=== PATIENT | female | born 1940 | race Caucasian/White ===

== ENCOUNTER 2022-10-18 06:05 | Outpatient (CLI) | payer MEDICARE, MEDICAID, SELFPAY ==
--- NOTE | 2022-10-18 06:18 | CT_ITS ---
WS: [id number] CT NECK TECHNIQUE: Contrast-enhanced CT of the neck with coronal and sagittal reformatted images. 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 DLP: 118.[address] scans at [facility] use at least one of these dose optimization techniques: automated e xposure control; mA and/or kV adjustment per patient size (includes targeted exams where dose is matc hed to clinical indication); or iterative reconstruction. FINDINGS: Palpable marker overlying the LEFT side of the face at the level of the mandible. Associated underlyi ng skin thickening compatible with area of known squamous cell carcinoma. This extends approximately 10.5 mm deep to the skin surface and measures approximately 2.2 x 1.1 Cm AP by transverse. Induration in the underlying soft tissues. Slight wispy induration abuts the underlying masseter muscle. Persis tent fat plane in this area. Concern for early involvement of the underlying masseter. In addition, this involves the underlying platysma. Normal LEFT parotid gland. 5 mm subcutaneous nodu le abutting the skin at the same level of the skin carcinoma anteriorly measuring 5 mm. Recommend cli nical correlation. This could represent a small lymph node. A few normal intraparotid lymph nodes. Normal RIGHT parotid gland. Normal submandibular glands. Tongu e base appears normal. Normal parapharyngeal fat. Normal posterior nasopharynx. Normal parapharyngeal fat. No evidence of supraglottic or glottic mass. Normal subglottic airway. Slightly spiculated nodule in the RIGHT upper lobe measuring 6 mm. Additional nodule in the RIGHT upp er lobe of the lung apex measuring 7 mm. Fibrosis lung apices. Mastoid air cells and paranasal sinuse s are well aerated. Retention cyst or polyp in the LEFT maxillary sinus measuring 10 mm with associat ed calcification. Mild mucosal thickening with trace fluid LEFT maxillary sinus. Trace mucosal thicke charly RIGHT maxillary sinus. Sphenoid sinuses are well aerated. Moderate to advanced spondylitic newton es cervical spine. CT/CT neck w con* [id number] IMPRESSION: 1. LEFT facial squamous cell carcinoma with palpable marker. This measures 2.2 x 1.1 CM. This extends approximately 10.5 mm deep to the skin 2. Surrounding wispy induration abuts the underlying masseter concerning for u nderlying involvement. Involvement of the LEFT platysma. 3. 5 mm subcutaneous nodule abutting the skin at the same level of the skin ca rcinoma anteriorly measuring 5 mm. Recommend clinical correlation. This could r epresent a small lymph node. This is adjacent to the anterior LEFT mandible 4. No suspicious cervical lymphadenopathy. 5. Two irregular nodules in the RIGHT lung apex measuring 6 to 7 mm described above. Recommend further evaluation with chest CT. No prior chest CT comparison s.
[2022-10-18 06:44] LABS: Blood Urea Nitrogen 14 mg/dL (8-23)
[2022-10-18] MEDS: iohexol 350 mg/mL 500 mL Btl (per mL) IV (06:53)
== END 2022-10-18 06:06 | disposition home or self-care (01) ==
LOC: RAD 06:10
PROVIDERS: PCP Family Medicine; Visit Provider Specialist
DX: C44.320 Squamous cell carcinoma of skin of unspecified parts of face (principal)
CPT/HCPCS: 70491; 82565; 84520; Q9967

== ENCOUNTER 2022-11-14 06:06 | Outpatient (CLI) | payer MEDICARE, MEDICAID, SELFPAY ==
--- NOTE | 2022-11-14 | ECG_ITS ---
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 Interpretive Statements NAME OF STUDY: LEXISCAN SESTAMIBI STRESS TEST INDICATION: Abnormal EKG PROCEDURE: At the baseline, the EKG revealed sinus bradycardia with features of old septal and recent high lateral wall myocardial infarction-Q waves in leads V2, I and aVL. The baseline heart was 56 bpm with a blood pressue of 170/74 mm of Hg Lexiscan was infused over a period of 20 seconds. A total of 0.4 milligrams of Lexiscan was infused. The stress phase was continued for a total of 5 minutes. Heart rate at the end of the stress phase was 69 bpm with a blood pressure 161/76 mm of Hg. The EKG at the peak infusion revealed no significant changes. Sestamibi was injected 20 seconds after the Lexiscan infusion. Heart rate at the end of the recovery phase was 68 bpm with a blood pressure of 156/77 mm of Hg. CONCLUSION: 1. No significant EKG changes with the LexiScan infusion 2. No LexiScan induced chest pain or cardiac arrhythmia 3. Normal blood pressure and heart rate response 4. Sestamibi/sestamibi perfusion scan pending; see separate report. Electronically Signed On 11-14-2022 20:09:58 CDT by Kenny Aguilar M.D. [id number]
--- NOTE | 2022-11-14 06:31 | NMCV_ITS ---
NM tuan perf SPECT r/s* [id number] Shruthi Latif Age: 82 Gender: F : 1940 Exam Date: 11/14/2022 07:23 Ordering Phys: Wendi Roblero MD Technologist: CRISTOPHER Rosenbaum Exam Location: [facility] Indications: ABNORMAL EKG STRESS TEST [facility] IMAGE PROTOCOL Rest/Stress 1 Lexiscan Day Radiopharmaceutical Dose (mCi) Administration Site Administered by Rest: Tc-99m 10.7 IV CRISTOPHER Pepe Sestamibi Stress:Tc-99m 32.3 IV CRISTOPHER Pepe Sestamibi Rest: 14-Nov-2022 60 Discovery 630 Stress: 14-Nov-2022 30 Discovery 630 0.4mg Lexiscan. Images obtained in supine and prone position. SPECT RESULTS Technical Quality: Excellent Raw Data Analysis: Normal Image Corrections: No attenuation or motion correction applied Summed Stress Score: 8 Summed Rest Score: 2 Summed Difference Score: 6 PERFUSION FINDINGS Moderate area of moderately decreased tracer uptake in the basal and mid inferolateral, mid anterolateral, mid anterior and apical lateral segments. Significant reversibility was noted in the anterolateral, inferolateral and apical lateral regions, with the supine imaging. However with the prone imaging, no significant reversibility was noted FUNCTIONAL RESULTS (calculated via Gated SPECT) Stress Image LV EF (%): 72 Stress EDV (mL):85 TID: 1.16 Stress ESV (mL):24 FUNCTIONAL FINDINGS: Segmental wall motion analysis revealing no gross wall motion abnormalities IMPRESSIONS 1. Myocardial perfusion imaging revealing moderate area of moderately decreased tracer uptake, involving the inferolateral, anterolateral and apical lateral regions with a significant reversibility suggesting ischemia in the distribution of the left circumflex artery/right coronary artery. However because of the inconsistency with the prone imaging, the reliability is questionable. 2. Normal LV ejection fraction 72%. 3. LV main normal. 4. Normal LV volume No similar previous studies are available for comparison Dr Kenny Aguilar MD [facility] (Electronically Signed) Final Date: 14 Nov 2022 20:04 S
[2022-11-14] MEDS: regadenoson 0.4 Mg/5 ml Syringe IVP (08:04)
[2022-11-14 08:23] VITALS: BP 154/68; PULSE 72
== END 2022-11-14 06:07 | disposition home or self-care (01) ==
LOC: CDL 06:09
PROVIDERS: PCP Family Medicine; Visit Provider Family Medicine
DX: R94.31 Abnormal electrocardiogram [ECG] [EKG] (principal)
CPT/HCPCS: 36415; 78452; 93017; 96374; A9500; J2785

== ENCOUNTER → 2022-11-17 08:02 | Outpatient (BNVA) | payer MEDICARE, MEDICAID, SELFPAY | PROVIDERS: PCP Family Medicine; Visit Provider Internal Medicine | DX: Z01.818 Encounter for other preprocedural examination (principal); R94.39 Abnormal result of other cardiovascular function study; I10 Essential (primary) hypertension | CPT/HCPCS: 99204 ==

== ENCOUNTER 2022-12-06 06:19 | Outpatient (CLI) | payer MEDICARE, MEDICAID, SELFPAY ==
--- NOTE | 2022-12-06 07:00 | USCV_ITS ---
Bhavya Shruthi Age: 82 Gender: F : 1940 Exam Date: 12/06/2022 06:48 Ordering Phys: Keyshawn Arreola M.D ([email or web address]) Technologist: TINY Exam Location: [facility] [place] Indication: SHORTNESS OF BREATH AND CHEST PAIN BP: 148 / 76 HR: 80 Rhythm: Sinus Technical Quality: Adequate MEASUREMENTS (Male / Female) Normal Values 2D ECHO LVOT Diameter 2.0 cm LV Ejection Fraction MOD 2C 68.5 % LV Ejection Fraction 2C AL 69.1 % LA Diameter 3.0 cm LA Width 3.2 cm LA Height 5.0 cm RA Width 3.6 cm RA Height 5.3 cm Aorta at Sinotubular Diameter 2.7 cm IVC Diameter 0.9 cm M-MODE Aortic Annulus Diameter 3.8 cm LA Ao Ratio MM 0.7 MV E Point Septal Separation 0.8 cm DOPPLER AV Peak Velocity 113.0 cm/s LVOT Peak Velocity 101.0 cm/s AV Area Cont Eq vti 3.0 cm squared AV Area Cont Eq pk 2.9 cm squared MV Peak Velocity 84.0 cm/s MV Area PHT 4.0 cm squared Mitral E to A Ratio 0.7 MV E' Velocity 38.0 cm/s Mitral E to MV E' Ratio 9.3 Mitral E to LV E' Lateral Ratio 8.7 Mitral E to LV E' Septal Ratio 10.1 TR Peak Velocity 207.7 cm/s TR Peak Gradient 17.3 mmHg TR Mean Velocity 150.2 cm/s TR Mean Gradient 9.8 mmHg TR Velocity Time Integral 74.5 cm TV Peak E Velocity 34.0 cm/s Right Atrial Pressure 3.0 mmHg Pulmonary Artery Systolic Pressu 20.3 mmHg PV Peak Velocity 76.0 cm/s RV Acceleration Time 0.2 s RV Ejection Time 0.4 s RV AcT/ET 0.5 FINDINGS Left Ventricle Left ventricle is normal in size. LV systolic function is normal with EF of 55 to 60%. No regional wall motion abnormalities are seen. Grade 1 diastolic dysfunction Right Ventricle Normal in size and function Right Atrium Normal in size Left Atrium Normal in size Mitral Valve Mild mitral annular calcification. Mild mitral regurgitation. Aortic Valve Structurally normal aortic valve. Mild to moderate aortic regurgitation Tricuspid Valve Moderate tricuspid regurgitation. Pulmonary artery systolic pressure is normal. Pulmonic Valve Mild pulmonic regurgitation. Pericardium Normal Aorta Normal in size IVC Appears to be normal CONCLUSIONS LV systolic function is normal with EF 55 to 60% Grade 1 diastolic dysfunction Mild mitral regurgitation Mild to moderate aortic regurgitation Moderate tricuspid regurgitation Mild pulmonic regurgitation Compared to prior echocardiogram from 2016, no significant changes are seen Keyshawn Arreola MD (Electronically Signed) Final Date: 09 December 2022 11:49 S
== END 2022-12-06 06:20 | disposition home or self-care (01) ==
PROVIDERS: PCP Family Medicine; Visit Provider Internal Medicine
DX: R06.02 Shortness of breath (principal); R07.9 Chest pain, unspecified; I08.3 Combined rheumatic disorders of mitral, aortic and tricuspid valves
CPT/HCPCS: 93306

== ENCOUNTER 2023-02-05 08:49 | Oncology outpatient (recurring) (ONCR) | payer MEDICARE, MEDICAID, SELFPAY ==
--- NOTE | 2023-01-10 09:09 | N.ONRAD NP_ITS ---
Radiation Oncology Consultation Patient Name: Shruthi Latif Date of : 1940 Date of Service: 01/10/2023 Attending Physician: Bonifacio Bob M.D. Shruthi Latif was seen in consultation this afternoon at the request of Mike Ariza M.D. 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 She was evaluated by Kojo Brenner M.D. for an ulcerated left cheek lesion. A neck CT scan ordered on October 18, 2022 described a 2.2 cm x 1.1 cm lesion of the left cheek that extended approximately 1 cm into the subcutaneous tissue. A PET scan obtained on November 29, 2022 identified metabolic uptake within the soft tissue overlying the left angle of the mandible (SUV 24.9), a left parotid lymph node (SUV 5.4), indeterminate pulmonary nodules, and FDG activity to a efe-portal and peripancreatic adenopathy (SUV 11.5). A wide local excision left superficial parotidectomy, neck dissection of cervical lymph node stations 1B, 2, and 3 with a left fasciocutaneous radial forearm free flap was performed by Mike Ariza M.D. on December 15, 2022 at [place], [place]. Pathological analysis confirmed a 6.5 cm x 1.5 cm (depth) poorly-differentiated keratinizing squamous cell carcinoma. Carcinoma invaded the skeletal muscle with perineural invasion (nerve diameter was 0.098 mm) and lymphovascular invasion present. Metastatic disease was present in 1 out of 4 intra-parotid lymph nodes. The lymph node measured 1.1 cm with extensive extranodal extension present. Surgical margin was negative. A total of 21 benign lymph nodes were harvested from cervical lymph node stations II and III. She was discharged from the hospital on postop day 5 without complications. The patient was evaluated for postoperative radiotherapy. I reviewed the [place] [employer] Staging for squamous cell carcinoma of the skin of the head and neck and patient's pathological stage IV (T3N3b). I discussed with Ms. Latif the National Comprehensive Cancer Network Guidelines for the management of cutaneous malignancies and the recommendation for consideration of adjuvant radiotherapy in patients with completely excised high-risk squamous cell carcinoma. I also reviewed the risk stratification for squamous cell skin cancer specific to her clinical case that includes high-risk features such as tumor diameter greater than 6 cm, perineural involvement and DINO. The patient has verbalized understanding and would like to proceed as recommended. The patient's medical treatment plan was discussed with Mike Ariza M.D. Signed by: Dr. Bonifacio Bob 02/05/2023 8:38:56 AM
--- NOTE | 2023-01-22 15:24 | ONCRAD EPV_ITS ---
Radiation Oncology Established Patient Visit Patient: Shruthi Latif [id number] : 1940> Age: 83> Sex: Female> Dictated by: Landon Willard M.D. Date of Service: 01/22/2023 Referring Physician(s) : Pierre Ariza MD Diagnosis: C44.309 - Unspecified malignant neoplasm of skin of other parts of face, Diagnosed 12/15/2022 (Active) Stage IV, T3, pN3b, M0 Radiotherapy to Date: None Current History: MS Latif returns for evaluation and possible simulation. She is doing reasonably well. However, she is concerned that the graft is healing slowly. She is afraid to start radiation before it is well taken. Her performance status has returned to normal. She is going about her normal activities with minimal or no limitation. She had extractions from the lower gingiva. Although she has no pain, she is having difficulty to adjust to the absence of the teeth. She has upper dentures that she had prior to the diagnosis of cancer. They fit well. She denies pain, drainage, bleeding, or exudate from the area of the graft. Vital Signs: Performed on 01/22/2023 12:58 PM BMI - 28.185 kg/m2 (high), Height - 64 in, Weight - 164.2 lbs, Temperature - 97.6 f, Pulse - 58 /min (low), Respiration - 16 /min, O2 Sat - 98 %, Pain - 0, Fatigue - 3 and BP - 118/ 56 mm(hg)(/low). Physical Exam: Alert oriented no distress. Her weight is down about 8 pounds from the time of diagnosis. She appears well-nourished. She ambulates without assistance and got on the exam table without assistance. Face: No active lesions of the skin seen. She has weakness of the mandibular branch of the facial nerve. She has a large graft over the left cheek. It actually appears to have taken well. There is edema of the lower half. The lower portion of the graft shows excellent healing of the incision. Superiorly, she has a great deal of crusting. I see no active bleeding or exudate. (A nurse is visiting her twice per week to apply peroxide soaks.) The oral cavity examination reveals no lesions. The mucosa of the left cheek is intact and there is no induration or nodularity on bimanual palpation. The upper dentures fit well. The lower gingiva has well healed extraction sites. There are no bony spicules palpated. The mucosa is intact. Neck: No palpable lymphadenopathy on either side. Performance Status: KPS 80 Lab: None pending. Pathology: Primary, c44.309 - unspecified malignant neoplasm of skin of other parts of face, Diagnosed 12/15/2022 (active) stage iv, t3, pn2a, m0. Imaging: None Impression: She is actually doing well. There are 2 areas of concern. The upper graft incision has not completely healed. It is covered with crust. Also she has some persistent edema of the graft which could affect the fitting of the mask needed for treatment. It has been improving. The lower gingiva has healed well and is not a factor in the timing of proceeding with radiation. I suggested to the patient that we wait 1 more week and then get her in for simulation. She is agreeable to that. I also discussed lower dentures with the patient because she is anxious to get them. I told her that I personally recommend patients wait 3 months after completing radiation to get dentures made. Signed by: 01/22/2023 3:22:37 PM <<Signature on File>> Time spent with patient: CPT Code: CPT Code:
--- NOTE | 2023-02-05 09:31 | ONCRAD TMN_ITS ---
Radiation Oncology Treatment Management Note Patient Name: Shruthi Latif Date of : 1940 Date of Service: 02/05/2023 Attending Physician: Bonifacio Bob M.D. 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 She was evaluated by Kojo Brenner M.D. for an ulcerated left cheek lesion. A neck CT scan ordered on October 18, 2022 described a 2.2 cm x 1.1 cm lesion of the left cheek that extended approximately 1 cm into the subcutaneous tissue. A PET scan obtained on November 29, 2022 identified metabolic uptake within the soft tissue overlying the left angle of the mandible (SUV 24.9), a left parotid lymph node (SUV 5.4), indeterminate pulmonary nodules, and FDG activity in efe-portal and peripancreatic adenopathy (SUV 11.5). A wide local excision left superficial parotidectomy, neck dissection of cervical lymph node stations 1B, 2, and 3 with a left fasciocutaneous radial forearm free flap was performed by Mike Ariza M.D. on December 15, 2022 at [place], [place]. Pathological analysis confirmed a 6.5 cm x 1.5 cm (depth) poorly-differentiated keratinizing squamous cell carcinoma. Carcinoma invaded the skeletal muscle with perineural invasion (nerve diameter was 0.098 mm) and lymphovascular invasion present. Metastatic disease was present in 1 out of 4 intra-parotid lymph nodes. The lymph node measured 1.1 cm with extensive extranodal extension present. Surgical margin was negative. A total of 21 benign lymph nodes were harvested from cervical lymph node stations II and III. She was discharged from the hospital on post-operative day 5 without complications. The patient has received 2 Gy of a prescribed 60 Parra with an intensity modulated radiotherapy plan utilizing a step and shoot treatment technique. Upon review of systems, she denied any complaints related to radiotherapy. On physical examination, the patient weighed 163 lbs. Her temperature was 97.1 ???F and the blood pressure was 114/56 mmHg. Her pulse was 63 bpm and the respiratory rate was 16. There was no erythema within the treatment friedman. Continue post-operative head and neck radiotherapy as prescribed. Signed by: Dr. Bonifacio Bob 02/05/2023 9:30:19 AM
== END 2023-02-05 23:59 | disposition home or self-care (01) ==
PROVIDERS: PCP Family Medicine; Visit Provider Radiology Radiation Oncology
DX: Z51.0 Encounter for antineoplastic radiation therapy (principal); C44.329 Squamous cell carcinoma of skin of other parts of face; C77.8 Secondary and unspecified malignant neoplasm of lymph nodes of multiple regions
CPT/HCPCS: 77300; 77301; 77334; 77338; 77386; 99024; 99205

== ENCOUNTER 2023-02-23 09:01 | Oncology outpatient (recurring) (ONCR) | payer MEDICARE, MEDICAID, SELFPAY ==
--- NOTE | 2023-02-13 10:29 | ONCRAD TMN_ITS ---
Radiation Oncology Weekly Treatment Management Patient: Bhavya Castañeda MR#: [id number] : 1940> Attending Physician: Kristopher Will Date of Service: 02/13/2023 Referring Physician(s) : Diagnosis: C44.309 - Unspecified malignant neoplasm of skin of other parts of face, Diagnosed 12/15/2022 (Active) Stage IV, T3, pN3b, M0 Radiotherapy to date: Course: , Treatment Site: [id number], Ref. ID: [id number], Energy: 6X, Dose/Fx (cGy): 200, #Fx: , Dose Correction (cGy): 0, Total Dose (cGy): 1,400, Start Date: 02/05/2023, Elapsed Days: 8 Reason for visit: The patient is being seen today as part of their regularly scheduled weekly on treatment visits to assess for acute toxicities from radiotherapy. Review of Systems: Patient denies difficulty with excessive fatigue. She denies mouth sores and has no complaints of difficulty swallowing or problems with speech. Vital Signs: Performed on 02/13/2023 9:04 AM BMI - 27.67 kg/m2 (high), Height - 64 in, Weight - 161.2 lbs, Temperature - 97.2 f, Pulse - 65 /min, Respiration - 16 /min, O2 Sat - 97 %, Pain - 0, Fatigue - 0 and BP - 125/ 60 mm(hg)(/low). Physical Exam: Alert and oriented female appearing her stated age. Skin graft of the left cheek is well-healed without sign of infection or drainage. No intraoral lesions or ulceration noted. Patient edentulous. Imaging: Radiation therapy imaging related to accurate target localization (i.e. KV, MV and CBCT) was reviewed. Appropriate changes, if any, were made to ensure treatment accuracy. Plan: Potential for oral irritation secondary to radiation therapy was reviewed with the patient. Also reviewed was the need for oral rinses to minimize the side effects. Continue prescribed radiation therapy. Signed by: Kristopher Will 02/13/2023 10:28:04 AM
--- NOTE | 2023-02-20 10:31 | ONCRAD TMN_ITS ---
Radiation Oncology Weekly Treatment Management Patient: Shruthi Latif MR#: [id number] : 1940> Attending Physician: John Corrigan Date of Service: 02/20/2023 Referring Physician(s) : Diagnosis: C44.309 - Unspecified malignant neoplasm of skin of other parts of face, Diagnosed 12/15/2022 (Active) Stage IV, T3, pN3b, M0 Radiotherapy to date: Course: , Treatment Site: [place] [address], Ref. ID: [id number], Energy: 6X, Dose/Fx (cGy): 200, #Fx: , Dose Correction (cGy): 0, Total Dose (cGy): 2,400, Start Date: 02/05/2023, Elapsed Days: 15 Reason for visit: The patient is being seen today as part of their regularly scheduled weekly on treatment visits to assess for acute toxicities from radiotherapy. Review of Systems: She has ongoing mouth soreness. Triple mix not available as lidocaine is in short supply. Using a liquid pain med prescribed by Dr. Guthrie but reluctant to use much as she does not want to be groggy. Not gargling yet with salt and soda. Lost 3 pounds Vital Signs: Performed on 02/20/2023 9:30 AM BMI - 27.018 kg/m2 (high), Height - 64 in, Weight - 157.4 lbs, Temperature - 96 f, Pulse - 65 /min, Respiration - 18 /min, O2 Sat - 96 %, Pain - 6, Fatigue - 0 and BP - 121/ 60 mm(hg)(/low). Physical Exam: mild left erythema of left cheek graft region. Some spotty crusting along well healed graft incision line. Imaging: Radiation therapy imaging related to accurate target localization (i.e. KV, MV and CBCT) was reviewed. Appropriate changes, if any, were made to ensure treatment accuracy. Plan: Increase use of current med for pain control. Add topical Aquaphor. Ad salt and soda gargles. Add Ensure. Discussed adding a fentanyl patch and PEG tube if current measures not successful. See again 02/22/2023. Signed by: John Corrigan 02/20/2023 10:26:21 AM
== END 2023-02-23 23:59 | disposition home or self-care (01) ==
PROVIDERS: PCP Family Medicine; Visit Provider Radiology Radiation Oncology
DX: Z51.0 Encounter for antineoplastic radiation therapy (principal); C44.309 Unspecified malignant neoplasm of skin of other parts of face
CPT/HCPCS: 77014; 77336; 77386; 99024

== ENCOUNTER 2023-03-08 09:02 | Oncology outpatient (recurring) (ONCR) | payer MEDICARE, MEDICAID, SELFPAY ==
--- NOTE | 2023-02-27 13:12 | ONCRAD TMN_ITS ---
Radiation Oncology Weekly Treatment Management Patient: Shruthi Latif MR#: [id number] : 1940 Attending Physician: John Corrigan Date of Service: 02/27/2023 Referring Physician(s) : Diagnosis: C44.309 - Unspecified malignant neoplasm of skin of other parts of face, Diagnosed 12/15/2022 (Active) Stage IV, T3, pN3b, M0 Radiotherapy to date: Course: , Treatment Site: [place] [address], Ref. ID: [id number], Energy: 6X, Dose/Fx (cGy): 200, #Fx: , Dose Correction (cGy): 0, Total Dose (cGy): 3,400, Start Date: 02/05/2023, Elapsed Days: Reason for visit: The patient is being seen today as part of their regularly scheduled weekly on treatment visits to assess for acute toxicities from radiotherapy. Review of Systems: Oral pain better. Nausea better controlled. Eating better but limited to soft foods such as soup and Ensure.. Using aloe lotion on left cheek. Moves around house but not really active. Vital Signs: Performed on 02/27/2023 9:34 AM BMI - 26.537 kg/m2 (high), Height - 64 in, Weight - 154.6 lbs, Temperature - 97.1 f, Pulse - 62 /min, Respiration - 16 /min, O2 Sat - 96 %, Pain - 0, Fatigue - 4 and BP - 116/ 58 mm(hg)(/low). Physical Exam: Imaging: Radiation therapy imaging related to accurate target localization (i.e. KV, MV and CBCT) was reviewed. Appropriate changes, if any, were made to ensure treatment accuracy. Plan: Good tolerance of treatment. Continue as planned. Signed by: John Corrigan 02/27/2023 1:11:22 PM
--- NOTE | 2023-03-06 11:46 | ONCRAD TMN_ITS ---
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 ID: [id number], Energy: 6X, Dose/Fx (cGy): 200, #Fx: , Dose Correction (cGy): 0, Total Dose (cGy): 4,400, Start Date: 02/05/2023, Elapsed Days: Reason for visit: The patient is being seen today as part of their regularly scheduled weekly on treatment visits to assess for acute toxicities from radiotherapy. Review of Systems: Nausea better with her anti emetic medication (Zofran). She continues to feel weak. She is drinking a lot of fluids but not eating much. She continues to use topical Aloe Vera. Pain is better with use of HC/apap. Vital Signs: Performed on 03/06/2023 9:10 AM BMI - 25.988 kg/m2 (high), Height - 64 in, Weight - 151.4 lbs, Temperature - 97.4 f, Pulse - 74 /min, Respiration - 16 /min, O2 Sat - 97 %, Pain - 3, Fatigue - 3 and BP - 118/ 59 mm(hg)(/low). Physical Exam: Imaging: Radiation therapy imaging related to accurate target localization (i.e. KV, MV and CBCT) was reviewed. Appropriate changes, if any, were made to ensure treatment accuracy. Plan: Fair to good tolerance of treatment. Continue as planned. Signed by: John Corrigan 03/06/2023 11:44:18 AM Telemedicine Consent Patient seen today via Telemedicine by agreement and consent of patient. Telemedicine technology used during the visit include audio and, as available, review of images. This patient encounter is appropriate and reasonable under the circumstances given the patient???s particular presentation at this time. The patient has been advised of the potential risks and limitations of this mode of treatment (including but not limited to the absence of in-person examination) and has agreed to be treated in a remote fashion in spite of them. Any and all of the patient???s/patient???s family???s questions on this issue have been answered and I have made no promises or guarantees to the patient. The patient has also been advised to contact this office for worsening conditions or problems, and seek emergency medical treatment and/or call 911 if the patient deems either necessary.
== END 2023-03-08 23:59 | disposition home or self-care (01) ==
PROVIDERS: PCP Family Medicine; Visit Provider Radiology Radiation Oncology
DX: Z51.0 Encounter for antineoplastic radiation therapy (principal); C44.309 Unspecified malignant neoplasm of skin of other parts of face
CPT/HCPCS: 77336; 77386; 99024

== ENCOUNTER 2023-03-12 18:57 | Emergency (ER) | payer MEDICARE, MEDICAID, SELFPAY ==
[2023-03-12] VITALS (7 sets, daily range): BP systolic 113–129; BP diastolic 45–82; PULSE 69–74; RESP 16–22; TEMP 36.9; O2SAT 93–95; BMI 25.4
--- NOTE | 2023-03-12 19:22 | XRR_ITS ---
PROCEDURE INFORMATION: Exam: XR Chest Exam date and time: 03/12/2023 7:29 PM Age: 83 years old Clinical indication: Fatigue TECHNIQUE: Imaging protocol: Radiologic exam of the chest. Views: 1 view. COMPARISON: No relevant prior studies available. FINDINGS: Lungs: Retrocardiac density likely represents a hiatal hernia. Pleural spaces: Unremarkable. No pleural effusion. No pneumothorax. Heart/Mediastinum: See Lungs finding. Vasculature: There is calcified plaque in the aortic knob. Bones/joints: Mild thoracic scoliotic curvatures. There are degenerative changes in the thoracic spine and across the acromioclavicular joints. XR/XR chest 1V portable [id number] IMPRESSION: Retrocardiac density likely represents a hiatal hernia. No evidence for acute cardiopulmonary disease.
--- NOTE | 2023-03-12 19:30 | ECG_ITS ---
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 Measurements Intervals [place] Rate: 73 P: 55 MO: 176 QRS: 30 QRSD: 94 T: 66 QT: 393 QTc: 433 Interpretive Statements SINUS RHYTHM No previous ECG available for comparison Electronically Signed On 03-12-2023 22:27:39 CDT by Keyshawn Arreola M.D. [id number]
--- NOTE | 2023-03-12 19:36 | ED_ITS ---
HPI - Weakness General: Chief complaint: Weakness Stated complaint: deyhydrated, rash, sick Time Seen by Provider: 03/12/23 19:17 History of Present Illness: Patient presents to the ER with complaining of not being able to eat or drink anything for a while. Patient says she is lost about 30 pounds. Patient does have a diagnosis of cancer and is got the last approximately 4 weeks of radiation on her left side of her neck. Patient says just hurts too bad to eat anything. Patient's says she has been dehydrated and just weak all over. Review of Systems General: Reports: 10 or more systems reviewed and unremarkable except in HPI and below PFSH ED PFSH: Medical History HTN (hypertension) Social History Smoking and tobacco status: never smoked Physical Exam Const: COMMON NORMALS: no acute distress, average body habitus, patient oriented x3, no limitations and well nourished HENMT: COMMON NORMALS: normocephalic, atraumatic, hearing grossly normal bilaterally, external ears normal, Normal external nose present and moist oral mucous membranes HEAD & SCALP: normocephalic and atraumatic NOSE: Normal external nose present EXTERNAL EAR: Yes external ears normal Eye: COMMON NORMALS: Equal, round and reactive pupils present, EOMs intact bilaterally, conjunctivae normal and no scleral icterus CONJUNCTIVA: Yes conjunctivae normal PUPIL: Yes Equal, round and reactive pupils present Neck/C-Spine: COMMON NORMALS: no JVD OTHER: [place] to the left side of neck and cheek from radiation therapy. Chest: COMMONS NORMALS: normal inspection of the chest and normal palpation of entire chest wall Resp: COMMON NORMALS: normal respiratory effort, No retractions, No use of accessory muscles and clear to auscultation bilaterally AUSCULTATION: clear to auscultation bilaterally Cardio: COMMON NORMALS: no JVD, regular rate, regular rhythm, S1 normal heart sound present, S2 normal heart sound present, No gallops present (Cardio), No clicks present (Cardio), No murmurs present (Cardio) and No rub (Cardio) RATE: regular rate RHYTHM: regular rhythm HEART SOUNDS: S1 normal heart sound present and S2 normal heart sound present GI: COMMON NORMALS: Normal to inspection, nondistended, normoactive bowel sounds present, Soft to palpation, non-tender, No hepatosplenomegaly present and no masses PALPATION: Yes Soft to palpation and Yes No hepatosplenomegaly present Neuro: COMMON NORMALS: patient oriented x3 Course Vital Signs: Vital signs: Vital Signs Temperature 98.4 F 03/12/23 19:03 Pulse Rate 69 03/12/23 22:19 Respiratory Rate 20 H 03/12/23 22:19 Blood Pressure 129/82 03/12/23 22:19 Pulse Oximetry 94 03/12/23 22:19 Oxygen Delivery Me thod Room Air 03/12/23 22:19 MDM - Weakness Medical Decision Making Patient presents to the ER with complaints of not being able to eat or drink for a while secondary to radiation causing her to have a extremely sore throat. Patient was tried a dose of Chloraseptic but did not help at all. We will going to try viscous lidocaine but we are out of it per the pharmacy. It was noticed that patient had a urinary tract infection she was given a gram of Rocephin IV as well as a liter of lactated Ringer's to help her with her caloric intake. Patient will be discharged home on a prescription for Levaquin 500 mg 1 pill once a day as this may be easier for the patient to swallow and also viscous lidocaine to use on an as-needed basis. Patient should follow-up with her PCP and oncologist within the next 1 to 2 weeks as needed. Differential Diagnosis Unlikely acute myocardial infarction, anemia, hypoglycemia, hypothyroidism, rhabdomyolysis, sepsis or dehydration Medical Records I reviewed the patient's medical records. Lab Data I reviewed the patient's lab results. 03/12/23 20:25 03/12/23 20:25 Radiology Impressions Chest X-Ray 03/12/23 19:22 IMPRESSION: Retrocardiac density likely represents a hiatal hernia. No evidence for acute cardiopulmonary disease. Laboratory Results WBC 6.36 10^3/uL (3.29-11.43) 03/12/23 20:25 RBC 4.94 10^6/uL (3.85-5.65) 03/12/23 20:25 Hgb 14.00 g/dL (11.27-16.99) 03/12/23 20:25 Hct 44.2 % (36-47) 03/12/23 20:25 MCV 89.5 fl (85-98) 03/12/23 20: MCH 28.3 pg (27-33) 03/12/23 20: MCHC 31.7 g/dL (30-55) 03/12/23 20: RDW 13.0 % (12.1-15.1) 03/12/23 20: Plt Count 208 10^3/cmm (157-399) 03/12/23 20: MPV 10.0 fL (7.4-10.4) 03/12/23 20: Neut % (Auto) 79.4 % 03/12/23 20: Lymph % (Auto) 7.1 % 03/12/23: [place] % (Auto) 11.0 % 03/12/23 20: Eos % (Auto) 1.6 % 03/12/23: Baso % (Auto) 0.6 % 03/12/23: Neut # (Auto) 5.05 10^3/uL (1.8-7.7) 03/12/23 20: Lymph # (Auto) 0.5 10^3/uL (0.8-4.8) L 03/12/23 20: [place] # (Auto) 0.7 10^3/uL (0.2-0.9) 03/12/23 20: Eos # (Auto) 0.1 10^3/uL (0.0-0.8) 03/12/23: Baso # (Auto) 0.0 10^3/uL (0.0-0.1) 03/12/23 20: Nucleated RBC % (auto) 0 % 03/12/23: Nucleated RBCs # 0.0 /100WBC 03/12/23 20:25 Sodium 136 mmol/L (136-145) 03/12/23 20:25 Potassium 4.9 mmol/L (3.5-5.1) 03/12/23 20:25 Chloride 99 mmol/L (98-107) 03/12/23 20:25 Carbon Dioxide 23 mmol/L (22-29) 03/12/23 20: Anion Gap 18.9 (5-19) 03/12/23 20:25 BUN 38 mg/dL (8-23) H 03/12/23 20:25 Creatinine 1.2 mg/dL (0.5-0.9) H 03/12/23 20:25 GFR Calculation Not Reportable 03/12/23 20:25 Glucose 92 mg/dL (65-115) 03/12/23 20:25 Calculated Osmolality 291 mOsm/kg (285-295) 03/12/23 20:25 Calcium 10.0 mg/dL (8.5-10.5) 03/12/23 20:25 Magnesium 2.1 mg/dL (1.7-2.3) 03/12/23 20:25 Total Bilirubin 0.5 mg/dL (0.15-1.2) 03/12/23 20:25 AST 16 U/L (0-32) 03/12/23 20:25 ALT 6 U/L (0-33) 03/12/23 20:25 Alkaline Phosphatase 59 U/L (35-105) 03/12/23 20:25 Total Protein 7.6 g/dL (6.6-8.7) 03/12/23 20:25 Albumin 3.8 g/dL (3.5-5.2) 03/12/23 20:25 Globulin 3.8 g/dL (1.3-4.6) 03/12/23 20:25 Urine Color Yellow (Yellow) 03/12/23 19:38 Urine Appearance Cloudy (CLEAR) A 03/12/23 19:38 Urine pH 5 (5-7) 03/12/23 19:38 Ur Specific [place] 1.030 (1.005-1.030) 03/12/23 19:38 Urine Protein Neg (Negative) 03/12/23 19:38 Urine Glucose (UA) Trace (Normal) H 03/12/23 19:38 Urine Ketones 1+ (Negative) H 03/12/23 19:38 Urine Blood 2+ (Negative) H 03/12/23 19:38 Urine Nitrate Negative (Negative) 03/12/23 19:38 Urine Bilirubin 1+ (Negative) H 03/12/23 19:38 Urine Urobilinogen Neg mg/dL (Negative) 03/12/23 19:38 Ur Leukocyte Esterase 2+ (Negative) H 03/12/23 19:38 Urine RBC 15-25 /hpf (0-2) H 03/12/23 19:38 Urine WBC 40-55 /hpf (0-5) H 03/12/23 19:38 Ur Squamous Epith Cells 5-10 /hpf (0-5) H 03/12/23 19:38 Amorphous Sediment Not Reportable 03/12/23 19:38 Urine Bacteria 3+ /hpf (NONE) H 03/12/23 19:38 Urine Mucus 2+ /hpf 03/12/23 19:38 EKG Data EKG 1: I personally reviewed and interpreted this EKG as follows: EKG interpretation date: 03/12/23 EKG interpretation time: 19:30 Prior EKG tracings: not available for review Interpretation: EKG shows ventricular rate 73 bpm, OK interval 176, QRS duration 94, QTc of 418, sinus rhythm, no ST-T wave changes Discharge Plan Discharge Patient Disposition: Home Clinical Impression: Generalized weakness Urinary tract infection Qualifiers: Urinary tract infection type: acute cystitis Hematuria presence: with hematuria Qualified Code(s): N30.01 - Acute cystitis with hematuria Pharyngitis Qualifiers: Pharyngitis/tonsillitis etiology: unspecified etiology Qualified Code(s): J02.9 - Acute pharyngitis, unspecified Condition: Stable Prescriptions: New levofloxacin 500 mg tablet 500 mg PO DAILY 7 Days Qty: 7 0RF lidocaine HCl [Lidocaine Viscous] 2 % solution 5 ml mucous membrane QID PRN (Reason: pain to use a swish and swallow) Qty: 100 0RF No Action cholecalciferol (vitamin D3) 25 mcg (1,000 unit) capsule 25 mcg PO DAILY lidocaine HCl [Lidocaine Viscous] 2 % solution 5 ml PO QID PRN (Reason: pain) Qty: 80 5RF Rx Instructions: add 80 ml Maalox and 80 ml benadryl syrup; swish and swallow fluconazole 100 mg tablet 100 mg PO DAILY Qty: 30 0RF acyclovir 400 mg tablet 400 mg PO QID Qty: 80 0RF Rx Instructions: take 4 times daily for 5 days then twice daily thereafter oxycodone 5 mg/5 mL solution See Rx Instructions PO Q4H PRN (Reason: pain) 7 Days Qty: 240 0RF Rx Instructions: 5 - 10 mg orally every 4 hours PRN; ondansetron HCl 4 mg tablet 4 - 8 mg PO Q8H PRN (Reason: nausea and vomiting) Qty: 30 1RF prochlorperazine maleate [Compazine] 10 mg tablet 10 mg PO Q6H PRN (Reason: nausea and vomiting) Qty: 30 0RF Rx Instructions: 1 tablet every 6 hours for 2 days, then every 6 hours as needed for nausea Zyrtec 10 mg Tablet 10 mg PO DAILY PRN (Reason: Allergy Symptoms) metoprolol succinate 100 mg tablet extended release 24 hr 100 mg PO DAILY amlodipine 5 mg tablet 5 mg PO DAILY famotidine 20 mg tablet 20 mg PO DAILY pravastatin 20 mg tablet 20 mg PO DAILY albuterol sulfate 90 mcg/actuation HFA aerosol inhaler 90 mcg INHALATION DAILY olmesartan 40 mg tablet 40 mg PO DAILY alprazolam 0.25 mg tablet 0.25 mg PO BEDTIME Discharge Orders: Discharge ED (Routine); Ordered 03/12/23 Ordered By: Sohan Salinas Referrals: Wendi Roblero MD [Primary Care Provider] - 1 week Patient Instructions: Pharyngitis (ED), Urinary Tract Infection - Women, Weakness (Generalized) Activity Restrictions/Additional Instructions: Please use all your medicines as directed. Please follow-up with your oncologist or family practice doctor in the next 1 to 2 weeks or sooner as needed. Please return to the ER if your symptoms worsen. Coding Level of Care Code ED Programming Director for June Pyle
[2023-03-12] MEDS: lactated ringers 1,000 ML 999 ML IV (20:10)
[2023-03-12 20:15] LABS: Bilirubin Urine 1+ (Negative); Blood Urine 2+ (Negative); Glucose Urine UA Trace (Normal); Ketones Urine 1+ (Negative); Nitrate Urine Negative (Negative); Protein Urine Neg (Negative); Urine Appearance Cloudy (CLEAR); Urine Color Yellow (Yellow); Urobilinogen Urine Neg (Negative); pH Urine 5 (5-7)
[2023-03-12 20:16] LABS: Add Urine Microscopic? YES; Leukocyte Esterase Urine 2+ (Negative)
[2023-03-12 20:17] LABS: Add Urine Culture? Yes; Bacteria Urine 3+ /hpf; Mucus Urine 2+ /hpf; RBC Urine 15-25 /hpf (0-2); WBC Urine 40-55 /hpf (0-5)
[2023-03-12 20:38] LABS: Basophils % 0.6 %; Eosinophils # 0.1 10^3/uL (0.0-0.8); Eosinophils % 1.6 %; Hematocrit 44.2 % (36-47); Lymphocytes # 0.5 10^3/uL (0.8-4.8); Lymphocytes % 7.1 %; Mean Corpuscular HGB Conc 31.7 g/dL (30-55); Mean Corpuscular Hemoglobin 28.3 pg (27-33); Mean Corpuscular Volume 89.5 fl (85-98); Monocytes # 0.7 10^3/uL (0.2-0.9); Neutrophils # 5.05 10^3/uL (1.8-7.7); Neutrophils % 79.4 %; Nucleated Red Blood Cells % 0 %; Platelet Count 208 10^3/cmm (157-399); Red Blood Count 4.94 10^6/uL (3.85-5.65); White Blood Count 6.36 10^3/uL (3.29-11.43)
[2023-03-12 21:09] LABS: Alanine Aminotransferase 6 U/L (0-33); Albumin Level 3.8 g/dL (3.5-5.2); Alkaline Phosphatase 59 U/L (35-105); Anion Gap 18.9 (5-19); Aspartate Amino Transferase 16 U/L (0-32); Blood Urea Nitrogen 38 mg/dL (8-23); Carbon Dioxide 23 mmol/L (22-29); Chloride 99 mmol/L (98-107); Globulin 3.8 g/dL (1.3-4.6); Glucose 92 mg/dL (65-115); Magnesium 2.1 mg/dL (1.7-2.3); Osmolality Calculated 291 mOsm/kg (285-295); Potassium 4.9 mmol/L (3.5-5.1); Sodium 136 mmol/L (136-145); Total Bilirubin 0.5 mg/dL (0.15-1.2); Total Protein 7.6 g/dL (6.6-8.7)
[2023-03-12] MEDS: cefTRIAXone 1,000 MG in sodium chloride 0.9% (plus) 50 ML 100 MG IV (22:06)
[2023-03-12] MEDS: phenol oral Spray 177 mL 5 SPRAY MUCOUS MEM (22:06)
== END 2023-03-12 22:58 | disposition home or self-care (01) ==
PROVIDERS: Emergency Provider Emergency Medicine; PCP Family Medicine
DX: R53.1 Weakness (principal); N30.01 Acute cystitis with hematuria; J02.9 Acute pharyngitis, unspecified; I10 Essential (primary) hypertension
CPT/HCPCS: 36415; 71045; 80053; 81001; 83735; 85025; 87077; 87086; 87186; 93005; 96361; 96365; 99285; J0696; J7120

== ENCOUNTER 2023-03-25 15:28 | Observation (INO) | payer MEDICARE, MEDICAID, SELFPAY ==
[2023-03-25 15:42] VITALS: BP 131/79; PULSE 76; RESP 16; TEMP 36.6; O2SAT 96; BMI 24.0
--- NOTE | 2023-03-25 15:51 | XRR_ITS ---
PROCEDURE INFORMATION: Exam: XR Chest Exam date and time: 03/25/2023 4:35 PM Age: 83 years old Clinical indication: Other: Weakness TECHNIQUE: Imaging protocol: Radiologic exam of the chest. Views: 1 view. COMPARISON: CR (CHEST, ) 03/12/2023 7:29 PM FINDINGS: Lungs: Unchanged hyperinflation with fibrosis and bronchiectasis. No consolidation. Pleural spaces: Unremarkable. No pleural effusion. No pneumothorax. Heart/Mediastinum: Unchanged cardiomegaly. Unchanged moderate to large sized hiatal hernia. Bones/joints: No acute abnormality. XR/XR chest 1V portable [id number] IMPRESSION: No acute findings.
--- NOTE | 2023-03-25 16:02 | ED_ITS ---
HPI - Weakness General: Chief complaint: Weakness Stated complaint: weakness Time Seen by Provider: 03/25/23 15:51 Source: patient Mode of arrival: ambulatory Limitations: no limitations History of Present Illness: 83-year-old female who states that she had a mass removed from the left side of her neck and had radiation therapy states that the stopped radiation therapy due to swelling states that ever since then over the last few months she has not really been able to eat much she has had extreme weight loss she has been seen for possible feeding tube placement see someone next week but family states that over the weekend she became much weaker having difficulty walking and has no energy and is having no oral intake. Associated symptoms: Denies chest pain, chills, fever(s), headache(s), nausea or vomiting Review of Systems Const: Reports: fatigue and malaise; Denies: fever(s) or chills ENMT: Denies: dental pain Card: Denies: chest pain Resp: Denies: dyspnea GI: Denies: abdominal pain, nausea, vomiting or diarrhea Musc: Denies: neck pain or back pain Skin/Breast: Denies: rash Neuro: Denies: headache(s) PFSH ED PFSH: Medical History Cancer HTN (hypertension) Family History (Updated 03/22/23 @ 15:26 by ADRIAN Wallace) Grandmother Cancer colon Father Cancer colon Social History Smoking and tobacco status: never smoked Physical Exam Const: COMMON NORMALS: patient oriented x3 and healthy appearing GENERAL APPEARANCE: frail appearing HENMT: COMMON NORMALS: normocephalic and atraumatic HEAD & SCALP: normocephalic and atraumatic Eye: COMMON NORMALS: conjunctivae normal CONJUNCTIVA: Yes conjunctivae normal Neck/C-Spine: COMMON NORMALS: full ROM and supple Chest: COMMONS NORMALS: normal inspection of the chest Resp: COMMON NORMALS: normal respiratory effort Cardio: COMMON NORMALS: regular rate, regular rhythm and No murmurs present (Cardio) RATE: regular rate RHYTHM: regular rhythm Extremity: COMMON NORMALS: normal to inspection and full ROM Neuro: COMMON NORMALS: patient oriented x3, moves all extremities and no focal motor deficits Psych: COMMON NORMALS: mental status grossly normal, Normal thought process present and cooperative THOUGHT PROCESS: Normal thought process present Skin: COMMON NORMALS: no rashes or lesions noted and no wounds GENERAL SKIN EXAM: no rashes or lesions noted Course Vital Signs: Vital signs: Vital Signs Temperature 97.9 F 03/25/23 15:42 Pulse Rate 67 03/25/23 16:27 Respiratory Rate 16 03/25/23 16:27 Blood Pressure 138/56 03/25/23 16:27 Pulse Oximetry 90 03/25/23 16:27 Oxygen Delivery Me thod Room Air 03/25/23 16:27 MDM - Weakness Medical Decision Making Patient presents here with abdominal failure to thrive along with generalized weakness due to not eating from likely her radiation. Did speak to surgeon Dr. Gutierrez along with hospitalist will admit at this time likely have a feeding tube placed while here. Medical Records I reviewed the patient's medical records. Lab Data I reviewed the patient's lab results. 03/25/23 16:23 03/25/23 16:23 Radiology Impressions Chest X-Ray 03/25/23 15:51 IMPRESSION: No acute findings. Laboratory Results WBC 6.14 10^3/uL (3.29-11.43) 03/25/23 16: RBC 5.10 10^6/uL (3.85-5.65) 03/25/23 16:23 Hgb 14.40 g/dL (11.27-16.99) 03/25/23 16:23 Hct 45.3 % (36-47) 03/25/23 16:23 MCV 88.8 fl (85-98) 03/25/23 16:23 MCH 28.2 pg (27-33) 03/25/23 16:23 MCHC 31.8 g/dL (30-55) 03/25/23 16:23 RDW 13.0 % (12.1-15.1) 03/25/23 16:23 Plt Count 132 10^3/cmm (157-399) L 03/25/23 16:23 MPV 10.6 fL (7.4-10.4) H 03/25/23 16:23 Neut % (Auto) 81.7 % 03/25/23 16:23 Lymph % (Auto) 7.2 % 03/25/23 16:23 [place] % (Auto) 9.0 % 03/25/23 16:23 Eos % (Auto) 1.5 % 03/25/23 16:23 Baso % (Auto) 0.3 % 03/25/23 16:23 Neut # (Auto) 5.02 10^3/uL (1.8-7.7) 03/25/23 16:23 Lymph # (Auto) 0.4 10^3/uL (0.8-4.8) L 03/25/23 16:23 [place] # (Auto) 0.6 10^3/uL (0.2-0.9) 03/25/23 16: Eos # (Auto) 0.1 10^3/uL (0.0-0.8) 03/25/23 16: Baso # (Auto) 0.0 10^3/uL (0.0-0.1) 03/25/23 16:23 Nucleated RBC % (auto) 0 % 03/25/23 16: Nucleated RBCs # 0.0 /100WBC 03/25/23 16:23 Sodium 142 mmol/L (136-145) 03/25/23 16:23 Potassium 3.7 mmol/L (3.5-5.1) 03/25/23 16:23 Chloride 106 mmol/L (98-107) 03/25/23 16:23 Carbon Dioxide 22 mmol/L (22-29) 03/25/23 16:23 Anion Gap 17.7 (5-19) 03/25/23 16:23 BUN 25 mg/dL (8-23) H 03/25/23 16:23 Creatinine 0.8 mg/dL (0.5-0.9) 03/25/23 16:23 GFR Calculation Not Reportable 03/25/23 16:23 Glucose 82 mg/dL (65-115) 03/25/23 16:23 Calculated Osmolality 297 mOsm/kg (285-295) H 03/25/23 16:23 Calcium 9.0 mg/dL (8.5-10.5) 03/25/23 16:23 Total Bilirubin 0.6 mg/dL (0.15-1.2) 03/25/23 16:23 AST 16 U/L (0-32) 03/25/23 16:23 ALT 7 U/L (0-33) 03/25/23 16:23 Alkaline Phosphatase 47 U/L (35-105) 03/25/23 16:23 Total Protein 6.6 g/dL (6.6-8.7) 03/25/23 16:23 Albumin 2.9 g/dL (3.5-5.2) L 03/25/23 16:23 Globulin 3.7 g/dL (1.3-4.6) 03/25/23 16:23 All radiology interpretation(s) finalized by discharge Discharge Plan Discharge Patient Disposition: Admitted As Inpatient Clinical Impression: Adult failure to thrive, Weakness Condition: Stable Coding Level of Care Code ED Department Supervisor for June Pyle
[2023-03-25] MEDS: sodium chloride 0.9% 1,000 ML 999 ML IV (16:25)
[2023-03-25 16:27] VITALS: BP 138/56; PULSE 67; RESP 16; O2SAT 90
[2023-03-25 16:42] LABS: Basophils % 0.3 %; Eosinophils # 0.1 10^3/uL (0.0-0.8); Eosinophils % 1.5 %; Hematocrit 45.3 % (36-47); Lymphocytes # 0.4 10^3/uL (0.8-4.8); Lymphocytes % 7.2 %; Mean Corpuscular HGB Conc 31.8 g/dL (30-55); Mean Corpuscular Hemoglobin 28.2 pg (27-33); Mean Corpuscular Volume 88.8 fl (85-98); Mean Platelet Volume 10.6 fL (7.4-10.4); Monocytes # 0.6 10^3/uL (0.2-0.9); Neutrophils # 5.02 10^3/uL (1.8-7.7); Neutrophils % 81.7 %; Nucleated Red Blood Cells % 0 %; Platelet Count 132 10^3/cmm (157-399); White Blood Count 6.14 10^3/uL (3.29-11.43)
[2023-03-25 17:09] LABS: Alanine Aminotransferase 7 U/L (0-33); Albumin Level 2.9 g/dL (3.5-5.2); Alkaline Phosphatase 47 U/L (35-105); Blood Urea Nitrogen 25 mg/dL (8-23); Carbon Dioxide 22 mmol/L (22-29); Chloride 106 mmol/L (98-107); Creatinine Clr Calc Pharmacy 48.9725; Globulin 3.7 g/dL (1.3-4.6); Glucose 82 mg/dL (65-115); Osmolality Calculated 297 mOsm/kg (285-295); Sodium 142 mmol/L (136-145); Total Bilirubin 0.6 mg/dL (0.15-1.2); Total Protein 6.6 g/dL (6.6-8.7)
[2023-03-25 17:11] LABS: Anion Gap 17.7 (5-19); Potassium 3.7 mmol/L (3.5-5.1)
[2023-03-25 17:12] LABS: Aspartate Amino Transferase 16 U/L (0-32)
[2023-03-25 17:59] VITALS: RESP 16; O2SAT 99
--- NOTE | 2023-03-25 19:42 | P.HP_ITS ---
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 She has been been referred to surgery for arrangements for feeding tube outpatient but this has not yet happened. As she has been growing weaker and needing 1-2 person assist with even getting up, family brought her in for evaluation to ER. She otherwise has been close to prior baseline, has had some mild cough, but not more than usual. Has had some nausea and occasional regurgitation, although per family this may have been ever since she had radiation therapy. Has been feeling fatigued. She lives by herself but family has been taking turns staying with her. She states she had a UTI several weeks ago and completed a course of antibiotic. Review of Systems Const: Reports: change in appetite and fatigue; Denies: fever(s), chills, body aches or malaise Card: Denies: chest pain, edema, pre-syncope or dyspnea on exertion Resp: Denies: dyspnea, productive cough, change in phlegm color or hemoptysis GI: Reports: nausea and vomiting; Denies: abdominal pain, diarrhea, constipation, hematochezia or melena : Denies: flank pain, urinary frequency or hematuria Musc: Denies: back pain, joint swelling or joint redness Skin/Breast: Denies: rash or new lesions Neuro: Denies: headache(s), numbness in extremities, weakness in extremities, dizziness, confusion or seizure-like activity Medications/Allergies Home Medications Medication Instructions Recorded Confirmed Last Taken Type albuterol sulfate 90 mcg/actuation 90 mcg inhalation DAILY 11/09/22 03/22/23 U nknown History aerosol inhaler amlodipine 5 mg tablet 5 mg PO DAILY 11/09/22 03/22/23 11/09/22 History cetirizine 10 mg tablet (Zyrtec) 10 mg PO DAILY PRN Allergy Symptoms 11/09/22 03/22/23 Unknown History famotidine 20 mg tablet 20 mg PO DAILY 11/09/22 03/22/23 Unknown History metoprolol succinate 100 mg 100 mg PO DAILY 11/09/22 03/22/23 Unknown History tablet,extended release 24 hr olmesartan 40 mg tablet 40 mg PO DAILY 11/09/22 03/22/23 11/09/22 History pravastatin 20 mg tablet 20 mg PO DAILY 11/09/22 03/22/23 11/09/22 History alprazolam 0.25 mg tablet 0.25 mg PO BEDTIME Anxiety 11/17/22 03/22/23 Unknown History cholecalciferol (vitamin D3) 25 25 mcg PO DAILY 11/17/22 03/22/23 Unknown History mcg (1,000 unit) capsule acyclovir 400 mg tablet 400 mg PO QID #80 tabs 02/16/23 03/22/23 Unknown Rx fluconazole 100 mg tablet 100 mg PO DAILY #30 tabs 02/16/23 03/22/23 Unknown Rx lidocaine HCl 2 % mucosal solution 5 ml PO QID PRN pain #80 mL 02/16/23 03/22/23 Unknown Rx (Lidocaine Viscous) oxycodone 5 mg/5 mL oral solution See Rx Instructions PO Q4H PRN 02/19/23 03/22/23 Unknown Rx pain 7 days #240 mL ondansetron HCl 4 mg tablet 4 - 8 mg PO Q8H PRN nausea and 02/21/23 03/22/23 Unknown Rx vomiting #30 tabs prochlorperazine maleate 10 mg 10 mg PO Q6H PRN nausea and 03/01/23 03/22/23 Unknown Rx tablet (Compazine) vomiting #30 tabs lidocaine HCl 2 % mucosal solution 5 ml mucous membrane QID PRN pain 03/12/23 03/22/23 Unknown Rx (Lidocaine Viscous) to use a swish and swallow #100 mL Allergies Allergy/AdvReac Type Severity Reaction Status Date / Time No Known Allergies Allergy Verified 03/22/23 15:15 PFSH Acute PFSH: Medical History (Updated 03/25/23 @ 20:29 by Augustus Piña MD) Abnormal EKG Cancer HTN (hypertension) Surgical History (Updated 03/25/23 @ 20:24 by Augustus Piña MD) History of cholecystectomy Family History Grandmother Cancer colon Father Cancer colon Social History Smoking and tobacco status: never smoked Vitals/I&O/Wt Last Vital Signs Temp 97.9 F 03/25/23 15:42 Pulse 67 03/25/23 16:27 Resp 16 03/25/23 17:59 BP 138/56 03/25/23 16:27 Pulse Ox 99 03/25/23 17:59 O2 Del Method Nasal Cannula 03/25/23 17:59 O2 Flow Rate 2 03/25/23 17:59 Weight last 48 hrs Weight 63.503 kg Physical Exam Narrative: Accompanied by family Const: COMMON NORMALS: patient oriented x3 and alert GENERAL APPEARANCE: cooperative ORIENTATION/CONSCIOUSNESS: Yes awake HENMT: COMMON NORMALS: oropharynx normal OTHER: Minimal erythema left cheek. Healed scar from prior surgery. Neck/C-Spine: COMMON NORMALS: no JVD Resp: COMMON NORMALS: normal respiratory effort and clear to auscultation bilaterally AUSCULTATION: clear to auscultation bilaterally Cardio: COMMON NORMALS: no JVD, regular rhythm, S1 normal heart sound present, S2 normal heart sound present and No murmurs present (Cardio) RHYTHM: regular rhythm HEART SOUNDS: S1 normal heart sound present and S2 normal heart sound present GI: COMMON NORMALS: Normal to inspection, nondistended, normoactive bowel sounds present, Soft to palpation and non-tender PALPATION: Yes Soft to palpation Extremity: COMMON NORMALS: no joint enlargement and no pedal edema Neuro: COMMON NORMALS: patient oriented x3 and moves all extremities SENSOR IUM/ORIENTATION: Yes alert Skin: COMMON NORMALS: no rashes or lesions noted GENERAL SKIN EXAM: no rashes or lesions noted Data 03/25/23 16:23 03/25/23 16:23 A&P Assessment and plan (1) Adult failure to thrive: Family state arrangements have been underway for her to have feeding tube placed in the outpatient side though this has not yet occurred and she has not been able to eat and has been getting weaker. Due to this concern family brought her in to the hospital. Surgery has been aware of her and has been consulted in ER. Discussed with ER physician, she will be seen for additional discussion plans for feeding tube. ER documentation reviewed. Keep n.p.o. after midnight. There does not appear to to be much that we could optimize prior to proceeding to surgery, risks present, but would be outweighed by benefits given her progressive failure to thrive inability to tolerate oral intake. (2) Weakness: As above. Family states has been growing weaker, has been requiring assistance of one half to people get around her home. Normally lives alone, but has been having family stay with her. Has not been able to participate with physical therapy. Family states that she has been having some nausea, although this may have been related to radiation therapy, but with weakness, poor appetite, will check COVID PCR. UA is requested. Check TSH. (3) Goals of care, counseling/discussion: She and her family have not considered goals of care in case of cardiopulmonary arrest. For now full code, but they will think about it further. She has been growing weaker recently, although this is thought to be likely secondary due to malnutrition, unable to tolerate oral intake. She has not been able to participate with physical therapy, has been growing weaker and requiring more assistance. Her radiation therapy had to be discontinued recently due to poor tolerance. They have not thought about hospice as an option so far. Plan Thrombocytopenia: Noted mild thrombocytopenia. 132. Follow-up CBC requested. Squamous cell carcinoma of left cheek Hypertension: Monitor blood pressures. Currently at goal. Requested to list home medications, please review and resume once available. Attestations Medical Necessity Statement*: Place in observation for additional assessment and management of failure to thrive, malnutrition, inability to take an oral intake. Diagnoses Adult failure to thrive R62.7 Weakness R53.1 Goals of care, counseling/discussion Z71.89
[2023-03-25 19:44] VITALS: BP 127/66; PULSE 65; RESP 17; TEMP 36.7; O2SAT 96
[2023-03-25 20:45] LABS: Thyroid Stimulating Hormone 1.37 uIU/mL (0.27-4.20)
[2023-03-25] MEDS: heparin 5,000 unit/mL INJ 1 mL 5000 UNIT SUBCUT (21:38)
[2023-03-26] VITALS (15 sets, daily range): BP systolic 110–164; BP diastolic 56–74; PULSE 53–69; RESP 12–20; TEMP 36.1–37.7; O2SAT 92–100
[2023-03-26 01:31] LABS: Add Urine Microscopic? YES; Bacteria Urine 1+ /hpf; Bilirubin Urine Neg (Negative); Blood Urine 2+ (Negative); Glucose Urine UA Norm (Normal); Ketones Urine 2+ (Negative); Leukocyte Esterase Urine Negative (Negative); Mucus Urine 3+ /hpf; Nitrate Urine Negative (Negative); Protein Urine Neg (Negative); RBC Urine 0-4 /hpf (0-2); Urine Appearance Clear (CLEAR); Urine Color Dark Yellow (Yellow); Urobilinogen Urine Neg (Negative); WBC Urine RARE /hpf (0-5); pH Urine 5 (5-7)
[2023-03-26 01:33] LABS: Add Urine Culture? Yes
[2023-03-26 03:09] LABS: Adenovirus Not Detected (NOT DETECT); Chlamydia Pneumoniae Not Detected (NOT DETECT); Coronavirus 229E,HKU1,NL63,OC4 Not Detected (NOT DETECT); Human Metapneumovirus Not Detected (NOT DETECT); Human Rhinovirus/Enterovirus Detected (NOT DETECT); Influenza A Not Detected (NOT DETECT); Influenza A H1 Not Detected (NOT DETECT); Influenza A H1-2009 Not Detected (NOT DETECT); Influenza A H3 Not Detected (NOT DETECT); Influenza B Not Detected (NOT DETECT); Mycoplasma Pneumoniae Not Detected (NOT DETECT); Parainfluenza Virus Type 1 Not Detected (NOT DETECT); Parainfluenza Virus Type 2 Not Detected (NOT DETECT); Parainfluenza Virus Type 3 Not Detected (NOT DETECT); Parainfluenza Virus Type 4 Not Detected (NOT DETECT); Respiratory Syncytial Virus A Not Detected (NOT DETECT); Respiratory Syncytial Virus B Not Detected (NOT DETECT); SARS-COV-2 Not Detected (NOT DETECT)
[2023-03-26 03:15] LABS: Human Metapneumovirus Not Detected (NOT DETECT); Human Rhinovirus/Enterovirus Detected (NOT DETECT); Results from GEN
[2023-03-26 05:15] LABS: Basophils % 0.2 %; Eosinophils # 0.1 10^3/uL (0.0-0.8); Eosinophils % 1.8 %; Hematocrit 38.1 % (36-47); Lymphocytes # 0.3 10^3/uL (0.8-4.8); Lymphocytes % 6.7 %; Mean Corpuscular Volume 87.6 fl (85-98); Mean Platelet Volume 10.7 fL (7.4-10.4); Monocytes # 0.4 10^3/uL (0.2-0.9); Monocytes % 8.3 %; Neutrophils # 3.69 10^3/uL (1.8-7.7); Neutrophils % 82.8 %; Nucleated Red Blood Cells % 0 %; Platelet Count 135 10^3/cmm (157-399); Red Blood Count 4.35 10^6/uL (3.85-5.65); Red Cell Distribution Width 12.9 % (12.1-15.1); White Blood Count 4.46 10^3/uL (3.29-11.43)
[2023-03-26 05:34] LABS: Anion Gap 13.5 (5-19); Blood Urea Nitrogen 22 mg/dL (8-23); Calcium 8.3 mg/dL (8.5-10.5); Carbon Dioxide 25 mmol/L (22-29); Chloride 109 mmol/L (98-107); Creatinine Clr Calc Pharmacy 48.9725; Glucose 75 mg/dL (65-115); Osmolality Calculated 300 mOsm/kg (285-295); Potassium 3.5 mmol/L (3.5-5.1); Sodium 144 mmol/L (136-145)
[2023-03-26] MEDS: heparin 5,000 unit/mL INJ 1 mL 5000 UNIT SUBCUT ×2 (08:00→21:14)
--- NOTE | 2023-03-26 08:24 | PM.CONSULT ---
Providers/Reason For Consult Consulting Physician/Specialty*: General surgery Reason for Consult*: Adult failure to thrive Attending Physician: Jason Reeves MD Primary Care Provider: Wendi Roblero MD History of Present Illness History of Present Illness Shruthi Latif is a 83 year old female who is known to me she presented to my clinic on Sunday due to failure to thrive. At that time we discussed the possibility of referral for laparoscopic gastric tube placement. Patient has history of head and neck cancer and received radiation to the neck after which he developed significant mucositis and also difficulty swallowing. Has not been able to eat over the last couple of weeks and has been losing a significant amount of weight. Patient ideation family decided to bring patient to the hospital yesterday as they and noticed that she was getting weaker. Review of Systems Narrative: 10 point review of systems done and negative otherwise noted in HPI. Medications/Allergies Home Medications Medication Instructions Recorded Confirmed Last Taken Type albuterol sulfate 90 mcg/actuation 90 mcg inhalation DAILY 11/09/22 03/25/23 03/18/23 09:00 History aerosol inhaler amlodipine 5 mg tablet 5 mg PO DAILY 11/09/22 03/25/23 03/18/23 09:00 History cetirizine 10 mg tablet (Zyrtec) 10 mg PO DAILY PRN Allergy Symptoms 11/09/22 03/25/23 03/11/23 09:00 History famotidine 20 mg tablet 20 mg PO DAILY 11/09/22 03/25/23 03/25/23 09:00 History metoprolol succinate 100 mg 100 mg PO DAILY 11/09/22 03/25/23 03/24/23 09:00 History tablet,extended release 24 hr olmesartan 40 mg tablet 40 mg PO DAILY 11/09/22 03/25/23 03/18/23 09:00 History pravastatin 20 mg tablet 20 mg PO DAILY 11/09/22 03/25/23 03/24/23 16:00 History alprazolam 0.25 mg tablet 0.25 mg PO BEDTIME Anxiety 11/17/22 03/25/23 03/25/23 09:00 History 0.25 cholecalciferol (vitamin D3) 25 25 mcg PO DAILY 11/17/22 03/25/23 03/18/23 09:00 History mcg (1,000 unit) capsule acyclovir 400 mg tablet 400 mg PO QID #80 tabs 02/16/23 03/25/23 03/18/23 09:00 Rx fluconazole 100 mg tablet 100 mg PO DAILY #30 tabs 02/16/23 03/25/23 03/25/23 09:00 Rx lidocaine HCl 2 % mucosal solution 5 ml PO QID PRN pain #80 mL 02/16/23 03/25/23 03/23/23 09:00 Rx (Lidocaine Viscous) oxycodone 5 mg/5 mL oral solution See Rx Instructions PO Q4H PRN 02/19/23 03/25/23 03/25/23 09:00 Rx pain 7 days #240 mL ondansetron HCl 4 mg tablet 4 - 8 mg PO Q8H PRN nausea and 02/21/23 03/25/23 03/24/23 09:00 Rx vomiting #30 tabs prochlorperazine maleate 10 mg 10 mg PO Q6H PRN nausea and 03/01/23 03/25/23 03/18/23 09:00 Rx tablet (Compazine) vomiting #30 tabs lidocaine HCl 2 % mucosal solution 5 ml mucous membrane QID PRN pain 03/12/23 03/25/23 03/23/23 09:00 Rx (Lidocaine Viscous) to use a swish and swallow #100 mL Allergies Allergy/AdvReac Type Severity Reaction Status Date / Time No Known Allergies Allergy Verified 03/22/23 15:15 Current Medications Generic Name Dose Route Start Last Admin Trade Name Freq PRN Reason Stop Dose Admin Heparin Sodium (Porcine) 5,000 unit 03/25/23 20:15 03/26/23 08:00 Heparin 5,000 Unit/Ml Inj 1 Ml SUBCUT 5,000 unit Q12H KEI Administration PFSH Acute PFSH: Medical History (Updated 03/25/23 @ 20:29 by Augustus Piña MD) Abnormal EKG Cancer HTN (hypertension) Surgical History (Updated 03/25/23 @ 20:24 by Augustus Piña MD) History of cholecystectomy Family History Grandmother Cancer colon Father Cancer colon Social History Smoking and tobacco status: never smoked Vitals/I&O/Wt Last Vital Signs Temp 98.6 F 03/26/23 08:10 Pulse 67 03/26/23 08:10 Resp 18 03/26/23 08:10 BP 153/74 03/26/23 08:10 Pulse Ox 97 03/26/23 08:10 O2 Del Method Nasal Cannula 03/26/23 08:10 O2 Flow Rate 2 03/25/23 17:59 03/25/23 03/26/23 03/26/23 22:59 06:59 14:59 Intake Total 1120 / 1120 0 / 1120 Balance 1120 / 1120 0 / 1120 Weight last 48 hrs Weight 146 lb 4.8 oz Weight 140 lb Physical Exam Narrative: General : Appears alert, frail Head : Normal cephalic, a-traumatic. Neck: There is erythema on the left side of the neck in the area of radiation Lungs : Equal chest rise bilaterally, no use of accessory muscles, trachea is midline. CV : Rate and rhythm are normal. Abdomen : Soft, ND, NT, no g/r/m Extremities : No edema. Upper extremities are normal bilaterally. Back : non-tender to palpation, no CVA tenderness. Data 03/26/23 04:17 03/26/23 04:17 A&P Assessment and plan (1) Adult failure to thrive: (2) Weakness: (3) Cancer: Plan 83-year-old female with failure to thrive after receiving radiation to the neck for head and neck cancer. Tensive Discussion with the Family regarding the Need for a Gastric Tube. I Have Informed That While There Is a High Chance of Failure I Think the Best Option Will Be to Proceed with Percutaneous Endoscopic Gastrostomy As Possible. If PEG Tube Is Unable to Be Done Then the Next Step Will Be to Consider Laparoscopic Gastrostomy, I Have Informed the Patient That I Do Not Do This Procedure in a Routinely Basis As It Requires Advanced Laparoscopic Skills, I Have Informed That I Could Offer an Open Gastrostomy but This Could Lead to Increased Morbidity As Patient Is Malnourished and Will Have an Large Wound in the Abdomen. I have explained that I will discuss with one of my colleagues Dr. Zarate who may be able to offer laparoscopic G tube placement. In the interim we will proceed with possible PEG tube placement today in the endoscopy suite. Ultrasound benefits of the procedure including the risk of perforation of the esophagus requiring surgical intervention and transfer to higher level of care were explained to the patient and the family members, additional risks my failure of the procedure, accidental cannulation of the colon, need for additional procedures were also Splane patient family agrees and wishes to proceed. Coding Level of Care Code Acute Code for Chg Fwd Diagnoses Adult failure to thrive R62.7 Weakness R53.1 Cancer C80.1
[2023-03-26 10:40] LABS: Iron 25 ug/dL (37-145); Percent Saturation 21.1 % (20-50); Thyroid Stimulating Hormone 1.17 uIU/mL (0.27-4.20); Total Iron Binding Capacity 118 mcg/dl; Unsaturated Iron Binding 93 ug/dL (112-347); Vitamin B12 539 pg/mL (232-1245)
--- NOTE | 2023-03-26 11:46 | ANES.PREANE2 ---
Pre-Anesthetic Assessment Height/Weight: Height 1.63 m Weight 66.361 kg Temp Pulse Resp BP Pulse Ox O2 Del Method O2 Flow Rate 98.6 F 61 18 153/74 97 Nasal Cannula 2 03/26/23 08:10 03/26/23 09:19 03/26/23 08:10 03/26/23 08:10 03/26/23 09:19 03/26/23 09:19 03/26/23 09:19 Preop Diagnosis: Failure to thrive Operation Date: 03/26/23 12:00 Proposed Procedures p PEG Tube Insertion(Not Applicable) - Bonifacio Gutierrez MD Familial anesthetic complications: None Was Beta John taken within 24 hours: N/A Was Clonidine taken within 24 hours: N/A Social No alcohol and No tobacco Exam alert, oriented x 3, clear to auscultation bilaterally and regular rate & rhythm Airway Submandibular: Other (Small mouth opening) Cervical ROM: within normal limits Mallampati: Class III Dentition: false History/ROS No significant history except as noted and No significant complaints Pulmonary Chronic Obstructive Pulmonary Disease and Cough CV/HEM Arrythmia, Coronary Artery Disease, Congestive Heart Failure and Hypertension CONCLUSION: 1. No significant EKG changes with the LexiScan infusion 2. No LexiScan induced chest pain or cardiac arrhythmia 3. Normal blood pressure and heart rate response 4. Sestamibi/sestamibi perfusion scan pending; see separate report. CONCLUSIONS ?LV systolic function is normal with EF 55 to 60% ?Grade 1 diastolic dysfunction ?Mild mitral regurgitation ?Mild to moderate aortic regurgitation ?Moderate tricuspid regurgitation ?Mild pulmonic regurgitation ?Compared to prior echocardiogram from 2016, no significant ?changes are seen Urinary Tract Infection Hepatic Hepatitis (50-60 years ago) GI Gastroesophageal Reflux Disease Dysphagia, head/neck radiation Metabolic None reported Musc/skel Lower Back Pain, Osteoarthritis/DJD and Weakness Neuropsych Anxiety and Neuropathy Anesthetic Plan ASA status: 4 Anesthesia: Anesthesia Evaluation, General and MAC Risk of > 500 ml blood loss (7ml/kg in children): No Medications/Allergies Home Medications Medication Instructions Recorded Confirmed Last Taken Type albuterol sulfate 90 mcg/actuation 90 mcg inhalation DAILY 11/09/22 03/25/23 03/18/23 09:00 History aerosol inhaler amlodipine 5 mg tablet 5 mg PO DAILY 11/09/22 03/25/23 03/18/23 09:00 History cetirizine 10 mg tablet (Zyrtec) 10 mg PO DAILY PRN Allergy Symptoms 11/09/22 03/25/23 03/11/23 09:00 History famotidine 20 mg tablet 20 mg PO DAILY 11/09/22 03/25/23 03/25/23 09:00 History metoprolol succinate 100 mg 100 mg PO DAILY 11/09/22 03/25/23 03/24/23 09:00 History tablet,extended release 24 hr olmesartan 40 mg tablet 40 mg PO DAILY 11/09/22 03/25/23 03/18/23 09:00 History pravastatin 20 mg tablet 20 mg PO DAILY 11/09/22 03/25/23 03/24/23 16:00 History alprazolam 0.25 mg tablet 0.25 mg PO BEDTIME Anxiety 11/17/22 03/25/23 03/25/23 09:00 History 0.25 cholecalciferol (vitamin D3) 25 25 mcg PO DAILY 11/17/22 03/25/23 03/18/23 09:00 History mcg (1,000 unit) capsule acyclovir 400 mg tablet 400 mg PO QID #80 tabs 02/16/23 03/25/23 03/18/23 09:00 Rx fluconazole 100 mg tablet 100 mg PO DAILY #30 tabs 02/16/23 03/25/23 03/25/23 09:00 Rx lidocaine HCl 2 % mucosal solution 5 ml PO QID PRN pain #80 mL 02/16/23 03/25/23 03/23/23 09:00 Rx (Lidocaine Viscous) oxycodone 5 mg/5 mL oral solution See Rx Instructions PO Q4H PRN 02/19/23 03/25/23 03/25/23 09:00 Rx pain 7 days #240 mL ondansetron HCl 4 mg tablet 4 - 8 mg PO Q8H PRN nausea and 02/21/23 03/25/23 03/24/23 09:00 Rx vomiting #30 tabs prochlorperazine maleate 10 mg 10 mg PO Q6H PRN nausea and 03/01/23 03/25/23 03/18/23 09:00 Rx tablet (Compazine) vomiting #30 tabs lidocaine HCl 2 % mucosal solution 5 ml mucous membrane QID PRN pain 03/12/23 03/25/23 03/23/23 09:00 Rx (Lidocaine Viscous) to use a swish and swallow #100 mL Allergies Allergy/AdvReac Type Severity Reaction Status Date / Time No Known Allergies Allergy Verified 03/22/23 15:15 Current Medications Generic Name Dose Route Start Last Admin Trade Name Suryaq PRN Reason Stop Dose Admin Heparin Sodium (Porcine) 5,000 unit 03/25/23 20:15 03/26/23 08:00 Heparin 5,000 Unit/Ml Inj 1 Ml SUBCUT 5,000 unit Q12H KEI Administration PFSH Anesthesia Medical History (Updated 03/25/23 @ 20:29 by Augustus Piña MD) Abnormal EKG Cancer HTN (hypertension) Surgical History (Updated 03/25/23 @ 20:24 by Augustus Piña MD) History of cholecystectomy Family History Grandmother Cancer colon Father Cancer colon Social History Smoking and tobacco status: never smoked Data Anesthesia 03/26/23 04:17 03/26/23 04:17 Short CBC 03/25/23 03/26/23 Range/Units 16:23 04:17 WBC 6.14 4.46 (3.29-11.43) 10^3/uL Hgb 14.40 12.20 (11.27-16.99) g/dL Hct 45.3 38.1 (36-47) % MCV 88.8 87.6 (85-98) fl Plt Count 132 L 135 L (157-399) 10^3/cmm Neut % (Auto) 81.7 82.8 % Neut # (Auto) 5.02 3.69 (1.8-7.7) 10^3/uL BMP 03/25/23 03/26/23 16:23 04:17 Sodium 142 144 Potassium 3.7 3.5 Chloride 106 109 H Carbon Dioxide 22 25 BUN 25 H 22 Creatinine 0.8 0.7 Glucose 82 75 Calcium 9.0 8.3 L Liver Function 03/25/23 Range/Units 16:23 Total Bilirubin 0.6 (0.15-1.2) mg/dL AST 16 (0-32) U/L ALT 7 (0-33) U/L Alkaline Phosphatase 47 (35-105) U/L Albumin 2.9 L (3.5-5.2) g/dL Urine 03/25/23 Range/Units 00:09 Urine Color Dark yellow (Yellow) Urine Appearance Clear (CLEAR) Urine pH 5 (5-7) Ur Specific Grant 1.020 (1.005-1.030) Urine Protein Neg (Negative) Urine Glucose (UA) Norm (Normal) Urine Ketones 2+ H (Negative) Urine Nitrate Negative (Negative) Urine Bilirubin Neg (Negative) Ur Leukocyte Esterase Negative (Negative) Urine RBC 0-4 H (0-2) /hpf Urine WBC Rare (0-5) /hpf COVID Results 03/26/23 01:00 Coronavirus 229E (PCR) Not detected SARS-CoV-2 (PCR) Not detected Cardiac Studies: Echocardiogram 12/06/22 Sestamibi Stress Test (Cardiology) 11/14/22
[2023-03-26] MEDS: sodium chloride 0.9% 1,000 ML 30 ML IV ×2 (11:52→13:31)
--- NOTE | 2023-03-26 12:34 | XR_ITS ---
WS: [id number] XR chest 1V portable [id number] REASON FOR EXAM: feeding tube FINDINGS: There is an extremely large hiatal hernia and the feeding tube is coiled within the hernia. IMPRESSION: Feeding tube position as above.
--- NOTE | 2023-03-26 12:57 | SUR.OPER ---
1238- Dobhoff feeding tube placed by Dr Gutierrez to the rt nare. Tube taped at 74cm. Pt still asleep at the time and tolerated well. Feeding tube placement confirmed by PCXR
[2023-03-26] MEDS: ondansetron 2 mg/ML SDV 2 mL 4 MG IVP (13:24)
[2023-03-26] MEDS: pantoprazole 40 mg SDV IVP (13:24)
[2023-03-26] MEDS: cetylpyridinium Lozenge 1 EACH MUCOUS MEM (13:37)
--- NOTE | 2023-03-26 13:47 | PM.PN ---
Vitals/I&O/Wt Last Vital Signs Temp 97 F L 03/26/23 12:46 Pulse 68 03/26/23 13:05 Resp 20 H 03/26/23 13:05 BP 147/71 03/26/23 13:05 Pulse Ox 98 03/26/23 13:05 O2 Del Method Nasal Cannula 03/26/23 13:05 O2 Flow Rate 2 03/26/23 13:05 03/25/23 03/26/23 03/26/23 22:59 06:59 14:59 Intake Total 1120 / 1120 0 / 1120 400 / 400 Balance 1120 / 1120 0 / 1120 400 / 400 Weight last 48 hrs Weight 66.361 kg Weight 63.503 kg Physical Exam Narrative: General: No acute distress, AO x3, chronically sick appearing, erythema on left cheek with healed scar HEENT: PERRLA, pupils bilaterally equal and reactive Chest: Normal vesicular breath sounds, no added sounds, equal good air entry bilaterally CVS: S1-S2 regular, no murmurs, no tachycardia, no gallops, no rubs Abdomen: Soft, nontender, no organomegaly, bowel sounds present Neuro: No focal deficits, no facial deformity, AO x3, power 5/5 in all limbs Data 03/26/23 04:17 03/26/23 04:17 A&P Assessment and plan (1) Adult failure to thrive: In setting of poor oral intake in a patient with a history of squamous cell carcinoma operated from left cheek post chemo and radiation therapy. Was being worked up as an outpatient for PEG tube placement. Surgery on board. As per surgical team high chance of failure given history of radiation to head and neck in past. If unsuccessful will possible plan for laparoscopic gastrostomy. IV fluids with D5 NS at 75 cc/h. PT evaluation. Dietary consult once feeding tube in place. Check TSH, iron panel, B12, folate levels. Monitor electrolytes including magnesium and phosphorus (2) Weakness: Most likely in setting of poor oral intake as above. Family states has been growing weaker, has been requiring assistance of one half to people get around her home. Normally lives alone, but has been having family stay with her. Has not been able to participate with physical therapy. No active signs of infection. COVID-19 negative. (3) Goals of care, counseling/discussion: She and her family have not considered goals of care in case of cardiopulmonary arrest. For now full code, but they will think about it further. She has been growing weaker recently, although this is thought to be likely secondary due to malnutrition, unable to tolerate oral intake. She has not been able to participate with physical therapy, has been growing weaker and requiring more assistance. Her radiation therapy had to be discontinued recently due to poor tolerance. They have not thought about hospice as an option so far. Plan Thrombocytopenia: Stable. Squamous cell carcinoma of left cheek post OR and chemoradiation Hypertension: Goal blood pressure less than 140/90 mmHg. Takes amlodipine 5 mg, olmesartan 40 mg, metoprolol succinate 100 mg daily at home. Currently medications on hold as patient is n.p.o. Monitor blood pressures. Currently at goal. Full code N.p.o. Protonix for PUD prophylaxis Heparin 5000 every 12 hourly for DVT prophylaxis Discharge plan: Plan to discharge home with home health versus SNF depending on PT evaluation and feeding through new PEG tube. Case management alerted. Attestations Medical Necessity Statement*: Requires further hospitalization for management of failure to thrive and weakness in setting of poor oral intake in a patient post chemoradiation therapy for squamous cell carcinoma of left cheek while PEG tube placement is done Diagnoses Adult failure to thrive R62.7 Weakness R53.1 Goals of care, counseling/discussion Z71.89
[2023-03-26] MEDS: dextrose 5%-sod chloride 0.9% 1,000 ML 75 ML IV (14:35)
--- NOTE | 2023-03-26 15:05 | P.MISC_ITS ---
Miscellaneous Note Purpose of Documentation: Update on patient care Note: Percutaneous endoscopic gastrostomy was attempted this afternoon, procedure was not successful as patient has extremely large hiatal hernia with almost all the stomach containing to the chest. Advancement into the abdomen was possible that there was no room for a gastrostomy tube. After procedure of the uncuffed tube was placed. At the moment of the x-ray the left lobe appeared to be calling site of the large hiatal hernia. I had extensive discussion with the family after the surgery, I explained that even with expertise of my [employer] senior specialist we were not able to complete the gastric tube placement. I also informed the family that at this point thinking of a gastric tube either by laparoscopic and open up broach it would be unlikely due to the extremely large hiatal hernia and majority of the stomach lays on the chest and it would require a very large operation with increased morbidity just to mobilize the stomach into the abdomen. I have explained that the copious duct up to advance through the esophageal hiatus and at that point it can be used for nutrition for the patient. For long-term nutrition the only option left is a feeding jejunostomy to, I have explained that at our institution we cannot offer her a laparoscopic feeding jejunostomy, I can offer her an open feeding jejunostomy, but this will be associated with significant morbidity and the likelihood of mortality due to the need of a large abdominal incision to have tube placed . I have explained that in my clinical opinion her best option is to obtain the laparoscopic or robotic assisted feeding jejunostomy placement, which likely can be done in a higher level of care. Patient has an appointment at the hospital in [place] for this on . At the moment she is a stable, however blood work is also unremarkable, I think after hydration the best option for her will be to proceed with a referral to higher level of care in order to get the laparoscopic feeding jejunostomy placed and proceed with enteral nutrition. I have order an abdominal x-ray for the morning to evaluate for progression of the Dobbhoff tube as well as Reglan to assist with peristalsis, it by the morning the Dobbhoff tube is not in the correct position the likelihood of success will be low and I most likely will discontinue the tube
[2023-03-26] MEDS: metoclopramide 5 mg/mL SDV 2 mL IVP ×2 (15:30→23:18)
--- NOTE | 2023-03-26 17:56 | PC.NURSE ---
Per Dr. Gutierrez, pt can have a regular diet and tomorrow, 03/27/23, placement of dobbhoff tube will be confirmed. This nurse offered pt a food tray, as well as softer foods such as ice cream, jello, popsicles or broth, however, pt declined due to a sore throat and a fear of vomiting.
[2023-03-27] VITALS (7 sets, daily range): BP systolic 129–151; BP diastolic 51–66; PULSE 53–67; RESP 16–18; TEMP 36.4–36.9; O2SAT 92–97
[2023-03-27] MEDS: dextrose 5%-sod chloride 0.9% 1,000 ML 75 ML IV ×2 (03:25→16:05)
--- NOTE | 2023-03-27 04:00 | XR_ITS ---
WS: [id number] XR chest 1V portable [id number] REASON FOR EXAM: advancement of dobhoff FINDINGS: The Dobbhoff feeding tube has been advanced but remains coiled within the large hiatal hernia. The lungs are better aerated than on the previous examination of 03/26/2023. No other interval change or new finding. IMPRESSION: Dobbhoff tube remains coiled within the large hiatal hernia.
[2023-03-27 05:14] LABS: Basophils % 0.2 %; Eosinophils # 0.1 10^3/uL (0.0-0.8); Hematocrit 35.2 % (36-47); Lymphocytes # 0.3 10^3/uL (0.8-4.8); Lymphocytes % 4.9 %; Mean Corpuscular Hemoglobin 28.6 pg (27-33); Mean Corpuscular Volume 86.7 fl (85-98); Mean Platelet Volume 11.3 fL (7.4-10.4); Monocytes # 0.4 10^3/uL (0.2-0.9); Monocytes % 7.4 %; Neutrophils % 86.1 %; Nucleated Red Blood Cells % 0 %; Platelet Count 124 10^3/cmm (157-399); Red Blood Count 4.06 10^6/uL (3.85-5.65); White Blood Count 5.11 10^3/uL (3.29-11.43)
[2023-03-27 05:31] LABS: Chol HDL Ratio 2.59 mg/dL (0.0-4.40); Cholesterol 96 mg/dL (0-200); HDL Cholesterol 37 mg/dL (60-100); LDL Cholesterol Calculated 43 mg/dL (50-129); Phosphorus 2.1 mg/dL (2.5-4.5); Triglycerides 80 mg/dL (0-150); VLDL Cholestrol Calculation 16 mg/dL (0-30)
[2023-03-27 05:32] LABS: Alanine Aminotransferase < 5 U/L (0-33); Albumin Level 2.9 g/dL (3.5-5.2); Alkaline Phosphatase 38 U/L (35-105); Aspartate Amino Transferase 9 U/L (0-32); Blood Urea Nitrogen 18 mg/dL (8-23); Calcium 8.1 mg/dL (8.5-10.5); Carbon Dioxide 25 mmol/L (22-29); Chloride 113 mmol/L (98-107); Globulin 2.5 g/dL (1.3-4.6); Glucose 126 mg/dL (65-115); Osmolality Calculated 305 mOsm/kg (285-295); Sodium 146 mmol/L (136-145); Total Bilirubin 0.5 mg/dL (0.15-1.2); Total Protein 5.4 g/dL (6.6-8.7)
[2023-03-27 05:36] LABS: Estmated Average Glucose 108; Hemoglobin A1C 5.4 % (4.0-6.0)
[2023-03-27 05:47] LABS: Folate Level < 20.0 ng/mL (4.8-37.3)
--- NOTE | 2023-03-27 08:09 | P.PN_ITS ---
Subjective Subjective: Patient has been stable overnight, minimal oral intake. Complains only of slight discomfort due to the Dobbhoff tube. Denies any abdominal pain or other symptoms. Vitals/I&O/Wt Last Vital Signs Temp 98.4 F 03/27/23 03:52 Pulse 53 L 03/27/23 07:25 Resp 18 03/27/23 07:25 BP 139/66 03/27/23 03:52 Pulse Ox 93 03/27/23 07:25 O2 Del Method Nasal Cannula 03/27/23 07:25 O2 Flow Rate 1 03/27/23 07:25 03/26/23 03/27/23 03/27/23 22:59 06:59 14:59 Intake Total 962.5 / 1381.5 Output Total 200 / 200 Balance -200 / 219 962.5 / 1181.5 Weight last 48 hrs Weight 146 lb 4.8 oz Weight 140 lb Physical Exam GI: OTHER: Abdomen is soft, nontender nondistended Data 03/27/23 04:28 03/27/23 04:28 Micro: Microbiology 03/25/23 00:09 Urine Culture - Preliminary Urine,Clean Catch A&P Assessment and plan (1) Adult failure to thrive: Plan 83-year-old female with history of head and neck radiation who presented with failure to thrive. A PEG tube was attempted, it was not possible due to very large hiatal hernia containing majority of the stomach inside of the chest. Abdominal cath was placed during the procedure, metoclopramide administered possible to attempt advancement of the Dr. Jackson into the duodenum. Despite these efforts the tube has not advanced over the last 24 hours, therefore is not able to be used for nutrition. I have decided to remove Dobbhoff tube. We have extensive discussion with the family regarding her options I explained that in our institution I can offer an open feeding jejunostomy as a gastrostomy is no longer an option due to the finding of a very large hiatal hernia containing whole stomach in the chest, but patient and family members have explained that they also have an appointment for to be seen by a surgeon in [facility] who could possibly do a laparoscopic feeding jejunostomy. I think that this is a reasonable approach, at the moment the patient is a stable, no significant evidence of malnutrition, labs are within normal limits and therefore I think will be appropriate for her to follow-up with the surgeon on choice in order to get a minimally invasive procedure that may benefit her recovery. No further interventions planned from the general surgery standpoint in our institution. Attestations Medical Necessity Statement*: Patient can be discharged from the surgery standpoint, she will follow-up with general surgeon in [place] for laparoscopic feeding jejunostomy tube Coding Level of Care Code Acute Code for Chg Fwd Diagnoses Adult failure to thrive R62.7
[2023-03-27] MEDS: pantoprazole 40 mg SDV IVP (09:45)
[2023-03-27] MEDS: heparin 5,000 unit/mL INJ 1 mL 5000 UNIT SUBCUT (09:45)
[2023-03-27] MEDS: ondansetron 2 mg/ML SDV 2 mL 4 MG IVP ×2 (10:35→16:46)
[2023-03-27] MEDS: potassium phosphate (mEq K) 40 MEQ in sodium chloride 0.9% (100 ml) 100 ML 29.26 MEQ IV ×2 (12:24→16:05)
--- NOTE | 2023-03-27 12:40 | P.DS_ITS ---
Discharge Providers Date of Admission: 03/25/23 17:17 Date of Discharge: March 27, 2023 Attending Provider at Admission: Augustus Piña Attending Provider at Discharge: Jason Reeves MD Consults: Surgery: Dr. 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 She has been been referred to surgery for arrangements for feeding tube outpatient but this has not yet happened.? As she has been growing weaker and needing 1-2 person assist with even getting up, family brought her in for evaluation to ER. She otherwise has been close to prior baseline, has had some mild cough, but not more than usual.? Has had some nausea and occasional regurgitation, although per family this may have been ever since she had radiation therapy.? Has been feeling fatigued. She lives by herself but family has been taking turns staying with her. She states she had a UTI several weeks ago and completed a course of antibiotic. Hospital Course Hospital Course Patient was admitted to the hospital further evaluation and management for failure to thrive in setting of poor oral intake and difficulty swallowing secon kelly to head and neck radiation. Surgery was consulted. PEG tube was attempted but was not possible due to large hiatal hernia containing majority of the stomach inside the chest. Dobbhoff tube was tried with possible advancement to duodenum with metoclopramide but it failed. Extensive discussions were done regarding further treatment plan with possibility of open feeding jejunostomy versus laparoscopic feeding jejunostomy. Unfortunately laparoscopic procedure could not be done at our hospital. Patient already has an appointment to see a surgeon up in [place] on coming . Today is Sunday. Family opted for options to follow-up with outpatient surgeon in [place] for laparoscopic jejunostomy. During hospitalization patient was continued on IV fluids. As patient was stable with no significant evidence of malnutrition with normal labs surgical team was comfortable patient being discharged with close follow-up with outpatient surgeon. During hospitalization electrolytes were replaced. She has been discharged in hemodynamically stable condition. Physical Exam Narrative: General: No acute distress, AO x3, chronically sick appearing, erythema on left cheek with healed scar HEENT: PERRLA, pupils bilaterally equal and reactive Chest: Normal vesicular breath sounds, no added sounds, equal good air entry bilaterally CVS: S1-S2 regular, no murmurs, no tachycardia, no gallops, no rubs Abdomen: Soft, nontender, no organomegaly, bowel sounds present Neuro: No focal deficits, no facial deformity, AO x3, power 5/5 in all limbs Discharge Data Studies Completed and Pending Completed Studies During Hospitalization Category Date Time Status CXRP [XR chest 1V portable [id number]] Routine Exams 03/26/23 12:34 Completed XR chest 1V portable [id number] AM LABS Exams 03/27/23 04:00 Completed XR chest 1V portable [id number] Stat Exams 03/25/23 15:51 Completed Pending at discharge Category Date Time Status MAG [Magnesium] AM LABS Lab 03/28/23 04:00 Ordered MAG [Magnesium] AM LABS Lab 03/29/23 04:00 Ordered PHOS [Phosphorus] AM LABS Lab 03/28/23 04:00 Ordered PHOS [Phosphorus] AM LABS Lab 03/29/23 04:00 Ordered Urine Culture Stat Lab 03/25/23 00:09 Results Laboratory Results WBC 5.11 10^3/uL (3.29-11.43) 03/27/23 04:28 RBC 4.06 10^6/uL (3.85-5.65) 03/27/23 04:28 Hgb 11.60 g/dL (11.27-16.99) 03/27/23 04:28 Hct 35.2 % (36-47) L 03/27/23 04:28 MCV 86.7 fl (85-98) 03/27/23 04:28 MCH 28.6 pg (27-33) 03/27/23 04:28 MCHC 33.0 g/dL (30-55) 03/27/23 04:28 RDW 13.0 % (12.1-15.1) 03/27/23 04:28 Plt Count 124 10^3/cmm (157-399) L 03/27/23 04:28 MPV 11.3 fL (7.4-10.4) H 03/27/23 04:28 Neut % (Auto) 86.1 % 03/27/23 04:28 Lymph % (Auto) 4.9 % 03/27/23 04:28 [place] % (Auto) 7.4 % 03/27/23 04:28 Eos % (Auto) 1.0 % 03/27/23 04:28 Baso % (Auto) 0.2 % 03/27/23 04:28 Neut # (Auto) 4.40 10^3/uL (1.8-7.7) 03/27/23 04:28 Lymph # (Auto) 0.3 10^3/uL (0.8-4.8) L 03/27/23 04:28 [place] # (Auto) 0.4 10^3/uL (0.2-0.9) 03/27/23 04:28 Eos # (Auto) 0.1 10^3/uL (0.0-0.8) 03/27/23 04:28 Baso # (Auto) 0.0 10^3/uL (0.0-0.1) 03/27/23 04:28 Nucleated RBC % (auto) 0 % 03/27/23 04:28 Nucleated RBCs # 0.0 /100WBC 03/27/23 04:28 Sodium 146 mmol/L (136-145) H 03/27/23 04:28 Potassium 3.0 mmol/L (3.5-5.1) L 03/27/23 04:28 Chloride 113 mmol/L (98-107) H 03/27/23 04:28 Carbon Dioxide 25 mmol/L (22-29) 03/27/23 04:28 Anion Gap 11.0 (5-19) 03/27/23 04:28 BUN 18 mg/dL (8-23) 03/27/23 04:28 Creatinine 0.7 mg/dL (0.5-0.9) 03/27/23 04:28 GFR Calculation Not Reportable 03/27/23 04:28 Glucose 126 mg/dL (65-115) H 03/27/23 04:28 Estimat Average Glucose 108 03/27/23 04:28 Hemoglobin A1c 5.4 % (4.0-6.0) 03/27/23 04:28 Calculated Osmolality 305 mOsm/kg (285-295) H 03/27/23 04:28 Calcium 8.1 mg/dL (8.5-10.5) L 03/27/23 04:28 Phosphorus 2.1 mg/dL (2.5-4.5) L 03/27/23 04:28 Magnesium 2.0 mg/dL (1.7-2.3) 03/27/23 04:28 Iron 25 ug/dL (37-145) L 03/26/23 04:17 TIBC 118 mcg/dl 03/26/23 04:17 % Saturation 21.1 % (20-50) 03/26/23 04:17 Unsat Iron Binding 93 ug/dL (112-347) L 03/26/23 04:17 Total Bilirubin 0.5 mg/dL (0.15-1.2) 03/27/23 04:28 AST 9 U/L (0-32) 03/27/23 04:28 ALT < 5 U/L (0-33) 03/27/23 04:28 Alkaline Phosphatase 38 U/L (35-105) 03/27/23 04:28 Total Protein 5.4 g/dL (6.6-8.7) L 03/27/23 04:28 Albumin 2.9 g/dL (3.5-5.2) L 03/27/23 04:28 Globulin 2.5 g/dL (1.3-4.6) 03/27/23 04:28 Triglycerides 80 mg/dL (0-150) 03/27/23 04:28 Cholesterol 96 mg/dL (0-200) 03/27/23 04:28 LDL Cholesterol, Calc 43 mg/dL (50-129) L 03/27/23 04:28 Total VLDL Cholesterol 16 mg/dL (0-30) 03/27/23 04:28 HDL Cholesterol 37 mg/dL (60-100) L 03/27/23 04:28 Cholesterol/HDL Ratio 2.59 mg/dL (0.0-4.40) 03/27/23 04:28 Vitamin B12 539 pg/mL (232-1245) 03/26/23 04:17 Folate < 20.0 ng/mL (4.8-37.3) 03/27/23 04:28 TSH 1.17 uIU/mL (0.27-4.20) 03/26/23 04:17 TSH Cancelled 03/26/23 04:17 Urine Color Dark yellow (Yellow) 03/25/23 00:09 Urine Appearance Clear (CLEAR) 03/25/23 00:09 Urine pH 5 (5-7) 03/25/23 00:09 Ur Specific [place] 1.020 (1.005-1.030) 03/25/23 00:09 Urine Protein Neg (Negative) 03/25/23 00:09 Urine Glucose (UA) Norm (Normal) 03/25/23 00:09 Urine Ketones 2+ (Negative) H 03/25/23 00:09 Urine Blood 2+ (Negative) H 03/25/23 00:09 Urine Nitrate Negative (Negative) 03/25/23 00:09 Urine Bilirubin Neg (Negative) 03/25/23 00:09 Urine Urobilinogen Neg mg/dL (Negative) 03/25/23 00:09 Ur Leukocyte Esterase Negative (Negative) 03/25/23 00:09 Urine RBC 0-4 /hpf (0-2) H 03/25/23 00:09 Urine WBC Rare /hpf (0-5) 03/25/23 00:09 Ur Squamous Epith Cells 5-10 /hpf (0-5) H 03/25/23 00:09 Amorphous Sediment Not Reportable 03/25/23 00:09 Urine Bacteria 1+ /hpf (NONE) H 03/25/23 00:09 Urine Mucus 3+ /hpf 03/25/23 00:09 Coronavirus 229E (PCR) Not detected (NOT DETECT) 03/26/23 01:00 Human Metapneumovir PCR Not detected (NOT DETECT) 03/26/23 03:15 Entero/Rhino (PCR) Detected (NOT DETECT) A 03/26/23 03:15 SARS-CoV-2 (PCR) Not detected (NOT DETECT) 03/26/23 01:00 Vitals Last Vital Signs Temp 98.2 F 03/27/23 11:53 Pulse 53 L 03/27/23 11:53 Resp 18 03/27/23 11:53 BP 129/51 03/27/23 11:53 Pulse Ox 94 03/27/23 11:53 O2 Del Method Nasal Cannula 03/27/23 07:25 O2 Flow Rate 1.5 03/27/23 08:00 Discharge Plan Discharge Patient Disposition: Home Condition: Stable Prescriptions: Continued cholecalciferol (vitamin D3) 25 mcg (1,000 unit) capsule 25 mcg PO DAILY lidocaine HCl [Lidocaine Viscous] 2 % solution 5 ml PO QID PRN (Reason: pain) Qty: 80 5RF Rx Instructions: add 80 ml Maalox and 80 ml benadryl syrup; swish and swallow fluconazole 100 mg tablet 100 mg PO DAILY Qty: 30 0RF acyclovir 400 mg tablet 400 mg PO QID Qty: 80 0RF Rx Instructions: take 4 times daily for 5 days then twice daily thereafter oxycodone 5 mg/5 mL solution See Rx Instructions PO Q4H PRN (Reason: pain) 7 Days Qty: 240 0RF Rx Instructions: 5 - 10 mg orally every 4 hours PRN; ondansetron HCl 4 mg tablet 4 - 8 mg PO Q8H PRN (Reason: nausea and vomiting) Qty: 30 1RF prochlorperazine maleate [Compazine] 10 mg tablet 10 mg PO Q6H PRN (Reason: nausea and vomiting) Qty: 30 0RF Rx Instructions: 1 tablet every 6 hours for 2 days, then every 6 hours as needed for nausea cetirizine [Zyrtec] 10 mg Tablet 10 mg PO DAILY PRN (Reason: Allergy Symptoms) metoprolol succinate 100 mg tablet extended release 24 hr 100 mg PO DAILY amlodipine 5 mg tablet 5 mg PO DAILY famotidine 20 mg tablet 20 mg PO DAILY pravastatin 20 mg tablet 20 mg PO DAILY albuterol sulfate 90 mcg/actuation HFA aerosol inhaler 90 mcg INHALATION DAILY olmesartan 40 mg tablet 40 mg PO DAILY alprazolam 0.25 mg tablet 0.25 mg PO BEDTIME lidocaine HCl [Lidocaine Viscous] 2 % solution 5 ml mucous membrane QID PRN (Reason: pain to use a swish and swallow) Qty: 100 0RF Discharge Orders: Discharge Order (Routine); Ordered 03/27/23 Ordered By: Jason Reeves Referrals: Wendi Roblero MD [Primary Care Provider] - 03/30/23 9:45 am Discharge Diet: As Directed Discharge Activity: Resume usual activity and Increase activity as tolerated Patient Instructions: Hypokalemia (DC), Weakness (DC), Failure to Thrive in Older Adults (GEN), GI Discharge Instructions, Opioid Safety Activity Restrictions/Additional Instructions: Please follow-up with your outpatient surgeon on set appointment on coming for further management of poor nutrition with possible laparoscopic jejunostomy. Please try to maintain hydration. If you have any dizziness, nausea or vomiting, high-grade fevers please come back to the hospital. Continue with IV fluids at outpatient radiation office as before. Discharge Attestations Time Spent in Discharge Care*: greater than 30 min Specific Discharge Activities: educating patient, educating and/or supporting family/caregiver, discussing with pcp/other providers, discussing with case management social worker/social workers/dc planners, documenting/other paperwork and evaluating patient/reviewing data Status at Discharge: Cognitive status at discharge: cognitively intact , Behavioral status at discharge: cooperative , Functional status at discharge: other assisted ambulation , Overall status at discharge: patient is back to baseline Quality Metrics Clinical Quality Measures [ No reported AMI, CVA or VTE this stay] Coding Level of Care Code 42384 Total time (in minutes) for Discharge: 45 Diagnoses Adult failure to thrive R62.7
== END 2023-03-27 20:36 | disposition home or self-care (01) ==
LOC: ER 16:05 → MEDSURG 23:20
PROVIDERS: Surgery; Admitting Provider Internal Medicine; Emergency Provider Emergency Medicine; PCP Family Medicine; Visit Provider Student in an Organized Health Care Education/Training Program
PROC: 0DH63UZ Insertion of Feeding Device into Stomach, Percutaneous Approach (ICD-10-PCS; CPT 43246; principal; 2023-03-26 12:00)
DX: R62.7 Adult failure to thrive (principal); C76.0 Malignant neoplasm of head, face and neck; R53.1 Weakness; D69.6 Thrombocytopenia, unspecified; Z71.89 Other specified counseling; K44.9 Diaphragmatic hernia without obstruction or gangrene; J44.9 Chronic obstructive pulmonary disease, unspecified; I25.10 Atherosclerotic heart disease of native coronary artery without angina pectoris; I11.0 Hypertensive heart disease with heart failure; I50.9 Heart failure, unspecified
CPT/HCPCS: 36415; 43235; 71045; 80048; 80053; 80061; 81001; 82607; 82746; 83036; 83540; 83550; 83735; 84100; 84443; 85025; 87086; 87635; 87801; 96360; 96372; 97161; 99285; C9113; G0378; J1644; J2371; J2405; J2704; J2765; J3480; J7030; J7042; Q3014

== ENCOUNTER 2023-03-30 09:30 | Oncology outpatient (recurring) (ONCR) | payer MEDICARE, MEDICAID, SELFPAY ==
[2023-03-15] MEDS: sodium chloride 0.9% 1,000 ML 400 ML IV (11:34)
[2023-03-15] MEDS: dexamethasone 10 mg/mL INJ IVP (11:34)
[2023-03-15] MEDS: famotidine 20 mg/2 mL INJ 10 MG IVP (11:44)
[2023-03-15] MEDS: ondansetron 2 mg/ML SDV 2 mL 8 MG IVP (12:01)
--- NOTE | 2023-03-15 13:21 | ONCRAD TMN_ITS ---
Radiation Oncology Weekly Treatment Management Patient: Bhavya Hawkins MR#: [id number] : 1940 Attending Physician: Landon Willard Date of Service: 03/15/2023 Referring Physician(s) : Dr. 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 ID: [id number], Energy: 6X, Dose/Fx (cGy): 200, #Fx: 25 / 30, Dose Correction (cGy): 0, Total Dose (cGy): 5,000, Start Date: 02/05/2023, Elapsed Days: 32 Reason for visit: Admission and has had difficulty with painful skin reaction, painful mucositis, odynophagia, and nausea. She was seen in the emergency room a few days ago and received IV hydration. She or her family have been on the phone with Dr. Hernandez. He told her to stop radiation. He called in a prescription for Magic mouthwash. She is using Aquaphor for skin reaction. Review of Systems: Fatigue, weakness, odynophagia, nausea, painful skin on the left side of the neck. Vital Signs: Performed on 03/15/2023 10:39 AM BMI - 24.546 kg/m2 (high), Height - 64 in, Weight - 143 lbs, Temperature - 97.1 f, Pulse - 72 /min, Respiration - 18 /min, O2 Sat - 91 % (low), Pain - 5, Fatigue - 0 and BP - 124/ 75 mm(hg). Physical Exam: Her weight is down 8-1/2 pounds since 03/06/2023. She has severe erythema and dry desquamation on the left side of her neck. In the mid neck area she has approached moist desquamation but thus far it has not developed. There is no evidence of infection. In the oral cavity and oropharynx she has moderate mucositis on the left. No yeast or viral ulcerations noted. No cervical or supraclavicular lymphadenopathy. Lungs clear to percussion. On auscultation no rales, rhonchi, or wheezes. Heart rhythm regular. No murmur or gallop. Abdomen no distention. Bowel sounds normal. No organomegaly or mass or tenderness. No tenderness over the bladder. Plan: Radiation has stopped according to Dr. Ariza's recommendation. I will send the patient for a liter of normal saline, 10 mg dexamethasone IV, 10 mg Pepcid IV, and 8 mg Zofran IV. She may require hydration again next week. She will continue Aquaphor for the skin of her face and neck. She has p.o. Zofran at home. She will use the Magic mouthwash as prescribed by Dr. Ariza. Signed by: Landon Willard 03/15/2023 1:20:31 PM
[2023-03-19 10:00] VITALS: BP 115/57; PULSE 61; RESP 18; TEMP 36.3; O2SAT 95
[2023-03-19] MEDS: sodium chloride 0.9% 1,000 ML 999 ML IV (10:06)
[2023-03-19 11:40] VITALS: BP 129/72; PULSE 55; RESP 17; TEMP 36.8; O2SAT 97
[2023-03-22] MEDS: sodium chloride 0.9% 1,000 ML 999 ML IV (09:56)
[2023-03-22] MEDS: ondansetron 2 mg/ML SDV 2 mL 8 MG IVP (10:32)
[2023-03-22] MEDS: famotidine 20 mg/2 mL INJ 10 MG IVP (10:32)
[2023-03-22 15:25] VITALS: BP 122/74; PULSE 55; RESP 16; TEMP 36.7; O2SAT 96
== END 2023-04-07 23:59 | disposition home or self-care (01) ==
PROVIDERS: PCP Family Medicine; Visit Provider Radiology Radiation Oncology
DX: Z53.9 Procedure and treatment not carried out, unspecified reason (principal)
CPT/HCPCS: 77336; 77386; 77427; 96360; 96361; 96365; 96374; 96375; 99024; 99203; J1100; J2405; J3490; J7030

== ENCOUNTER 2023-04-02 17:36 | Inpatient (IN) | payer MEDICARE, MEDICAID, SELFPAY ==
[2023-04-02 17:45] VITALS: BP 126/75; PULSE 84; RESP 16; TEMP 36.7; O2SAT 95; BMI 24.0
--- NOTE | 2023-04-02 19:02 | ECG_ITS ---
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 Measurements Intervals [place] Rate: 63 P: 62 [place]: 167 QRS: 0 QRSD: 87 T: 12 QT: 424 QTc: 437 Interpretive Statements SINUS RHYTHM Compared to ECG 03/12/2023 19:30:42 No significant changes Electronically Signed On 04-03-2023 21:08:09 CDT by Kenny Aguilar M.D. [id number]
[2023-04-02 19:08] LABS: Basophils % 0.3 %; Eosinophils # 0.1 10^3/uL (0.0-0.8); Eosinophils % 1.4 %; Hematocrit 43.8 % (36-47); Lymphocytes # 0.5 10^3/uL (0.8-4.8); Lymphocytes % 6.6 %; Mean Corpuscular HGB Conc 33.8 g/dL (30-55); Mean Corpuscular Hemoglobin 27.8 pg (27-33); Mean Corpuscular Volume 82.3 fl (85-98); Mean Platelet Volume 10.4 fL (7.4-10.4); Monocytes # 0.5 10^3/uL (0.2-0.9); Monocytes % 7.3 %; Neutrophils # 6.02 10^3/uL (1.8-7.7); Neutrophils % 84.1 %; Nucleated Red Blood Cells % 0 %; Platelet Count 167 10^3/cmm (157-399); Red Blood Count 5.32 10^6/uL (3.85-5.65); White Blood Count 7.15 10^3/uL (3.29-11.43)
[2023-04-02] MEDS: sodium chloride 0.9% 1,000 ML 999 ML IV ×2 (19:11→20:59)
[2023-04-02 19:15] VITALS: BP 158/78; PULSE 72; RESP 16; O2SAT 93
--- NOTE | 2023-04-02 19:19 | ED_ITS ---
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 Swallow this. She was admitted several days ago, and relief last week, 7 days ago after receiving IV hydration. Attempts at gastrostomy tubes have been made here without success. She was referred to surgery in [place], and they do not feel comfortable attempting. She was referred to [facility] for jejunostomy tube placement but they have not heard. She has not had any oral intake. This includes liquid evidently. She has not had hydration since she was released 7 days ago from this facility. There is no fever, cough, diarrhea, other illness. Associated symptoms: Reports nausea; Deny chest pain, confusion, dyspnea, headache(s), rash, palpitations or vomiting Review of Systems Const: Denies: fever(s), chills or body aches Eyes: Denies: change in vision Card: Denies: chest pain or palpitations Resp: Denies: dyspnea, productive cough, non-productive cough or wheezing GI: Reports: nausea; Denies: abdominal pain, vomiting, diarrhea or hematochezia : Denies: difficulty voiding Skin/Breast: Denies: rash Neuro: Denies: headache(s), weakness in extremities, dizziness or confusion PFSH ED PFSH: Medical History Abnormal EKG Cancer HTN (hypertension) Surgical History History of cholecystectomy Family History Grandmother Cancer colon Father Cancer colon Social History Smoking and tobacco status: never smoked Physical Exam Const: GENERAL APPEARANCE: cooperative, ill appearing and frail appearing HENMT: COMMON NORMALS: normocephalic, atraumatic and Normal external nose present HEAD & SCALP: normocephalic and atraumatic FACE & SINUS: normal facial exam and face symmetric NOSE: Normal external nose present Eye: COMMON NORMALS: Equal, round and reactive pupils present and EOMs intact bilaterally PUPIL: Yes Equal, round and reactive pupils present Neck/C-Spine: GENERAL: Yes trachea midline Chest: CHEST: Yes Symmetrical chest wall rise Resp: COMMON NORMALS: normal respiratory effort, No retractions, No use of accessory muscles and clear to auscultation bilaterally AUSCULTATION: clear to auscultation bilaterally Cardio: COMMON NORMALS: regular rate and regular rhythm RATE: regular rate RHYTHM: regular rhythm GI: COMMON NORMALS: Normal to inspection, nondistended, normoactive bowel sounds present Extremity: COMMON NORMALS: no pedal edema Neuro: SHAHEEN COMA SCALE: document GCS findings Shaheen coma scale eye opening: Spontaneous Shaheen coma scale verbal response: Orientated Shaheen coma scale motor response: [place]bey commands [place] coma scale total score: 15 S ENSORY EXAM: Yes extremities (intact) Psych: COMMON NORMALS: speech normal SPEECH: Yes normal speech Skin: COMMON NORMALS: no rashes or lesions noted GENERAL SKIN EXAM: no rashes or lesions noted Course Vital Signs: Vital signs: Vital Signs Temperature 98.0 F 04/02/23 17:45 Pulse Rate 58 L 04/02/23 21:56 Respiratory Rate 16 04/02/23 21:56 Blood Pressure 152/66 04/02/23 21:56 Pulse Oximetry 95 04/02/23 21:56 Oxygen Delivery Me thod Room Air 04/02/23 22:31 [facility] - General Adult Medical Decision Making 83-year-old female with failure to thrive, and inability to tolerate oral intake. Vital signs show mild hypertension. Oxygen saturations are normal. Ot her laboratory is stable. CBC is normal. Potassium however is 2.8. The patient has a significant urinary tract infection. She is given 2 L of fluid, IV potassium, IV Rocephin for the urinary tract infection. She will require admission given UTI and hypokalemia. Have spoken with hospitalist. He will evaluate the patient. There is still the issue of inability to tolerate oral intake. She will likely have to be referred to [facility] for outpatient jejunostomy tube placement for this. Lab Data 04/02/23 18:45 04/02/23 19:47 Laboratory Results WBC 7.15 10^3/uL (3.29-11.43) 04/02/23 18:45 RBC 5.32 10^6/uL (3.85-5.65) 04/02/23 18:45 Hgb 14.80 g/dL (11.27-16.99) 04/02/23 18:45 Hct 43.8 % (36-47) 04/02/23 18:45 MCV 82.3 fl (85-98) L 04/02/23 18:45 MCH 27.8 pg (27-33) 04/02/23 18:45 MCHC 33.8 g/dL (30-55) 04/02/23 18:45 RDW 13.0 % (12.1-15.1) 04/02/23 18:45 Plt Count 167 10^3/cmm (157-399) 04/02/23 18:45 MPV 10.4 fL (7.4-10.4) 04/02/23 18:45 Neut % (Auto) 84.1 % 04/02/23 18:45 Lymph % (Auto) 6.6 % 04/02/23 18:45 [place] % (Auto) 7.3 % 04/02/23 18:45 Eos % (Auto) 1.4 % 04/02/23 18:45 Baso % (Auto) 0.3 % 04/02/23 18:45 Neut # (Auto) 6.02 10^3/uL (1.8-7.7) 04/02/23 18:45 Lymph # (Auto) 0.5 10^3/uL (0.8-4.8) L 04/02/23 18:45 [place] # (Auto) 0.5 10^3/uL (0.2-0.9) 04/02/23 18:45 Eos # (Auto) 0.1 10^3/uL (0.0-0.8) 04/02/23 18:45 Baso # (Auto) 0.0 10^3/uL (0.0-0.1) 04/02/23 18:45 Nucleated RBC % (auto) 0 % 04/02/23 18:45 Nucleated RBCs # 0.0 /100WBC 04/02/23 18:45 Sodium 140 mmol/L (136-145) 04/02/23 19:47 Potassium 2.8 mmol/L (3.5-5.1) L* 04/02/23 19:47 Chloride 101 mmol/L (98-107) 04/02/23 19:47 Carbon Dioxide 30 mmol/L (22-29) H 04/02/23 19:47 Anion Gap 11.8 (5-19) 04/02/23 19:47 BUN 17 mg/dL (8-23) 04/02/23 19:47 Creatinine 0.6 mg/dL (0.5-0.9) 04/02/23 19:47 GFR Calculation Not Reportable 04/02/23 19:47 Glucose 94 mg/dL (65-115) 04/02/23 19:47 Calculated Osmolality 291 mOsm/kg (285-295) 04/02/23 19:47 Calcium 8.5 mg/dL (8.5-10.5) 04/02/23 19:47 Phosphorus 2.1 mg/dL (2.5-4.5) L 04/02/23 19:47 Magnesium 1.8 mg/dL (1.7-2.3) 04/02/23 19:47 Total Bilirubin 0.9 mg/dL (0.15-1.2) 04/02/23 19:47 AST 12 U/L (0-32) 04/02/23 19:47 ALT 8 U/L (0-33) 04/02/23 19:47 Alkaline Phosphatase 42 U/L (35-105) 04/02/23 19:47 Creatine Kinase 23 U/L (26-192) L 04/02/23 19:47 C-Reactive Protein 29.5 mg/L (0.0-4.9) H 04/02/23 19:47 Total Protein 5.7 g/dL (6.6-8.7) L 04/02/23 19:47 Albumin 2.9 g/dL (3.5-5.2) L 04/02/23 19:47 Globulin 2.8 g/dL (1.3-4.6) 04/02/23 19:47 Procalcitonin 0.08 ng/mL (0-0.5) 04/02/23 19:47 TSH 2.28 uIU/mL (0.27-4.20) 04/02/23 19:47 Urine Color Yellow (Yellow) 04/02/23 19:15 Urine Appearance Cloudy (CLEAR) A 04/02/23 19:15 Urine pH 6 (5-7) 04/02/23 19:15 Ur Specific [place] 1.020 (1.005-1.030) 04/02/23 19:15 Urine Protein 1+ (Negative) H 04/02/23 19:15 Urine Glucose (UA) Norm (Normal) 04/02/23 19:15 Urine Ketones 2+ (Negative) H 04/02/23 19:15 Urine Blood 2+ (Negative) H 04/02/23 19:15 Urine Nitrate Positive (Negative) H 04/02/23 19:15 Urine Bilirubin 1+ (Negative) H 04/02/23 19:15 Urine Urobilinogen 4 mg/dL (Negative) H 04/02/23 19:15 Ur Leukocyte Esterase 2+ (Negative) H 04/02/23 19:15 Urine RBC 0-4 /hpf (0-2) H 04/02/23 19:15 Urine WBC Too numerous to cnt /hpf (0-5) H 04/02/23 19:15 Ur Squamous Epith Cells 0-4 /hpf (0-5) H 04/02/23 19:15 Amorphous Sediment Not Reportable 04/02/23 19:15 Urine Bacteria 3+ /hpf (NONE) H 04/02/23 19:15 No radiology studies performed this visit Discharge Plan Discharge Patient Disposition: Admitted As Inpatient Admit Provider: Clint Mead Clinical Impression: Protein calorie malnutrition, Physical deconditioning, Hypokalemia, Acute UTI Condition: Fair Coding Level of Care Code 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
[2023-04-02 19:29] LABS: Add Urine Microscopic? YES; Bilirubin Urine 1+ (Negative); Blood Urine 2+ (Negative); Glucose Urine UA Norm (Normal); Ketones Urine 2+ (Negative); Leukocyte Esterase Urine 2+ (Negative); Nitrate Urine Positive (Negative); Protein Urine 1+ (Negative); Urine Appearance Cloudy (CLEAR); Urine Color Yellow (Yellow); Urobilinogen Urine 4 mg/dL (Negative); pH Urine 6 (5-7)
[2023-04-02 19:30] LABS: Add Urine Culture? Yes; Bacteria Urine 3+ /hpf; RBC Urine 0-4 /hpf (0-2); Squamous Epithelial Cell Urine 0-4 /hpf (0-5); WBC Urine TOO NUMEROUS TO CNT /hpf (0-5)
[2023-04-02 20:15] LABS: Alanine Aminotransferase 8 U/L (0-33); Albumin Level 2.9 g/dL (3.5-5.2); Alkaline Phosphatase 42 U/L (35-105); Anion Gap 11.8 (5-19); Aspartate Amino Transferase 12 U/L (0-32); Blood Urea Nitrogen 17 mg/dL (8-23); Calcium 8.5 mg/dL (8.5-10.5); Carbon Dioxide 30 mmol/L (22-29); Chloride 101 mmol/L (98-107); Creatine Phosphokinase 23 U/L (26-192); Creatinine Clr Calc Pharmacy 48.9725; Globulin 2.8 g/dL (1.3-4.6); Glucose 94 mg/dL (65-115); Magnesium 1.8 mg/dL (1.7-2.3); Osmolality Calculated 291 mOsm/kg (285-295); Phosphorus 2.1 mg/dL (2.5-4.5); Sodium 140 mmol/L (136-145); Total Bilirubin 0.9 mg/dL (0.15-1.2); Total Protein 5.7 g/dL (6.6-8.7)
[2023-04-02] MEDS: cefTRIAXone 1,000 MG in sodium chloride 0.9% (plus) 50 ML 100 MG IV (20:17)
[2023-04-02 20:26] LABS: Potassium 2.8 mmol/L (3.5-5.1)
[2023-04-02 20:27] VITALS: BP 143/68; PULSE 60; RESP 16; O2SAT 95
[2023-04-02] MEDS: potassium chloride premix 100 ML 25 MEQ IV (21:00)
--- NOTE | 2023-04-02 21:42 | CTR_ITS ---
PROCEDURE INFORMATION: Exam: CT Abdomen And Pelvis Without Contrast Exam date and time: 04/02/2023 10:01 PM Age: 83 years old Clinical indication: Condition or disease; Other: UTI TECHNIQUE: Imaging protocol: Computed tomography of the abdomen and pelvis without contrast. Radiation optimization: All CT scans at this facility use at least one of these dose optimization techniques: automated exposure control; mA and/or kV adjustment per patient size (includes targeted exams where dose is matched to clinical indication); or iterative reconstruction. REPORTING DATA: Count of CT and Cardiac NM exams in prior 12 months: This patient has received 3 known CTs and 0 known cardiac nuclear medicine studies in the 12 months prior to the current study. COMPARISON: US renal BI* [id number] 11/15/2016 7:11 AM RADIATION DOSE METRICS: Total DLP (mGy-cm): 464.66 FINDINGS: Lungs: Bibasilar atelectasis versus infiltrate. Left lower lobe 9.2 mm pulmonary nodule, dedicated nonemergent chest CT advised for further evaluation. Pleural spaces: Small bilateral right greater than left pleural effusions. Coronary arteries: Coronary artery atherosclerotic calcifications. Liver: Normal. No mass. Gallbladder and bile ducts: Cholecystectomy. Pancreas: Normal. No ductal dilation. Spleen: Bilateral calcified splenic granulomas. Adrenal glands: Normal. No mass. Kidneys and ureters: Minimal perinephric edema bilaterally likely reflecting renal insufficiency, please correlate for pyelonephritis. Scattered periaortic subcentimeter lymph nodes, nonspecific. Right kidney cyst, negative follow-up advised. 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 Appendix: No evidence of appendicitis. Intraperitoneal space: Unremarkable. No free air. No significant fluid collection. Vasculature: Unremarkable. No abdominal aortic aneurysm. Lymph nodes: See Kidneys and ureters finding. Urinary bladder: Unremarkable as visualized. Reproductive: Unremarkable as visualized. Soft tissues: Unremarkable. CT/CT kidney stone [id number] IMPRESSION: 1. Minimal perinephric edema bilaterally likely reflecting renal insufficiency, please correlate for pyelonephritis. 2. Scattered periaortic subcentimeter lymph nodes, nonspecific. 3. Coronary artery atherosclerotic calcifications. 4. 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 5. Small bilateral right greater than left pleural effusions. 6. Bibasilar atelectasis versus infiltrate. 7. Left lower lobe 9.2 mm pulmonary nodule, dedicated nonemergent chest CT advised for further evaluation. 8. Bilateral calcified splenic granulomas. 9. Cholecystectomy. 10. Right kidney cyst, negative follow-up advised. COMMENTS: Consistent with the [employer]'s Incidental Findings Committee white paper (J Am Joni Radiol 2018): Any incidental renal lesion less than 1 cm or classified as too small to characterize, or any incidental cystic renal lesion characterized as simple-appearing, is likely benign. No follow-up imaging is recommended for these lesions per consensus recommendations based on imaging criteria.
--- NOTE | 2023-04-02 21:49 | PM.HP ---
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 Patient has not been able to eat or drink, she has a poor appetite, no dysuria, hematuria, flank pain, fevers, chills. She has pain in the back of her throat, pain in her esophagus. She was supposed to have another radiation treatment to the head and neck however given her difficulties, they have postponed for now. Family have taken her off to [facility] in [place] for surgical consideration of PEG tube placement however it did last, the case is complicated, and they would recommend for her to have surgical consideration at [place] referral was made, but they have not heard back. Family tells me that she is lost about 50 pounds in the last few months, she continues to not have inability to eat or drink, and they are worried that she is rapidly declining, losing muscle mass, losing weight Review of Systems Const: Denies: fever(s) Eyes: Denies: change in vision ENMT: Reports: throat pain Card: Denies: chest pain Resp: Denies: dyspnea GI: Reports: abdominal pain, nausea, dysphagia and heartburn Musc: Reports: neck pain Neuro: Denies: headache(s) or numbness in extremities Medications/Allergies Home Medications Medication Instructions Recorded Confirmed Last Taken Type albuterol sulfate 90 mcg/actuation 90 mcg inhalation DAILY 11/09/22 03/25/23 03/18/23 09:00 History aerosol inhaler amlodipine 5 mg tablet 5 mg PO DAILY 11/09/22 03/25/23 03/18/23 09:00 History cetirizine 10 mg tablet (Zyrtec) 10 mg PO DAILY PRN Allergy Symptoms 0503/25/23 03/11/23 09:00 History famotidine 20 mg tablet 20 mg PO DAILY 11/09/22 03/25/23 03/25/23 09:00 History metoprolol succinate 100 mg 100 mg PO DAILY 11/09/22 03/25/23 03/24/23 09:00 History tablet,extended release 24 hr olmesartan 40 mg tablet 40 mg PO DAILY 11/09/22 03/25/23 03/18/23 09:00 History pravastatin 20 mg tablet 20 mg PO DAILY 11/09/22 03/25/23 03/24/23 16:00 History alprazolam 0.25 mg tablet 0.25 mg PO BEDTIME Anxiety 11/17/22 03/25/23 03/25/23 09:00 History 0.25 cholecalciferol (vitamin D3) 25 25 mcg PO DAILY 11/17/22 03/25/23 03/18/23 09:00 History mcg (1,000 unit) capsule acyclovir 400 mg tablet 400 mg PO QID #80 tabs 02/16/23 03/25/23 03/18/23 09:00 Rx fluconazole 100 mg tablet 100 mg PO DAILY #30 tabs 02/16/23 03/25/23 03/25/23 09:00 Rx lidocaine HCl 2 % mucosal solution 5 ml PO QID PRN pain #80 mL 02/16/23 03/25/23 03/23/23 09:00 Rx (Lidocaine Viscous) oxycodone 5 mg/5 mL oral solution See Rx Instructions PO Q4H PRN 02/19/23 03/25/23 03/25/23 09:00 Rx pain 7 days #240 mL ondansetron HCl 4 mg tablet 4 - 8 mg PO Q8H PRN nausea and 02/21/23 03/25/23 03/24/23 09:00 Rx vomiting #30 tabs prochlorperazine maleate 10 mg 10 mg PO Q6H PRN nausea and 03/01/23 03/25/23 03/18/23 09:00 Rx tablet (Compazine) vomiting #30 tabs lidocaine HCl 2 % mucosal solution 5 ml mucous membrane QID PRN pain 03/12/23 03/25/23 03/23/23 09:00 Rx (Lidocaine Viscous) to use a swish and swallow #100 mL Allergies Allergy/AdvReac Type Severity Reaction Status Date / Time No Known Allergies Allergy Verified 03/22/23 15:15 PFSH Acute PFSH: Medical History (Updated 04/02/23 @ 21:55 by Clint Mead MD) Abnormal EKG Cancer HTN (hypertension) Surgical History History of cholecystectomy Family History Grandmother Cancer colon Father Cancer colon Social History Smoking and tobacco status: never smoked Vitals/I&O/Wt Last Vital Signs Temp 98.0 F 04/02/23 17:45 Pulse 60 04/02/23 20:27 Resp 16 04/02/23 20:27 BP 143/68 04/02/23 20:27 Pulse Ox 95 04/02/23 20:27 O2 Del Method Room Air 04/02/23 20:27 04/02/23 04/02/23 04/02/23 06:59 14:59 22:59 Intake Total 1050 / 1050 Balance 1050 / 1050 Weight last 48 hrs Weight 63.503 kg Physical Exam Const: COMMON NORMALS: no acute distress and patient oriented x3 OTHER: Oropharynx, with white plaquing, throughout oral pharynx, into posterior pharynx, Muscle wasting, bilateral temporal muscle wasting, bilateral arms, shoulders, thighs, calves muscle wasting HENMT: COMMON NORMALS: normocephalic and Normal external nose present HEAD & SCALP: normocephalic FACE & SINUS: normal facial exam NOSE: Normal external nose present Eye: COMMON NORMALS: Equal, round and reactive pupils present, EOMs intact bilaterally, conjunctivae normal and no scleral icterus CONJUNCTIVA: Yes conjunctivae normal PUPIL: Yes Equal, round and reactive pupils present Neck/C-Spine: COMMON NORMALS: full ROM, no JVD and No carotid bruits Lymph: LYMPHATIC: no lymphadenopathy noted Chest: COMMONS NORMALS: normal inspection of the chest Resp: COMMON NORMALS: normal respiratory effort, No retractions, No use of accessory muscles and clear to auscultation bilaterally AUSCULTATION: clear to auscultation bilaterally Cardio: COMMON NORMALS: regular rate, regular rhythm, S1 normal heart sound present, S2 normal heart sound present, No murmurs present (Cardio) and Peripheral pulses 2+ throughout RATE: regular rate RHYTHM: regular rhythm HEART SOUNDS: S1 normal heart sound present and S2 normal heart sound present PERIPHERAL PULSES: Peripheral pulses 2+ throughout GI: COMMON NORMALS: Normal to inspection, nondistended, normoactive bowel sounds present, Soft to palpation and non-tender : BLADDER/KIDNEY EXAM: Yes no CVA tenderness Back/Pelvis: COMMON NORMALS: no CVA tenderness Extremity: COMMON NORMALS: normal to inspection, full ROM, capillary refill normal, no calf tenderness and no pedal edema Neuro: COMMON NORMALS: patient oriented x3, CN's II-XII intact bilaterally, moves all extremities and no focal motor deficits Psych: COMMON NORMALS: mental status grossly normal, cooperative and speech normal APPEARANCE: Yes well kempt SPEECH: Yes normal speech THOUGHT PROCESS: Normal thought process present Skin: COMMON NORMALS: no jaundice GENERAL SKIN EXAM: turgor normal Data 04/02/23 18:45 04/02/23 19:47 Micro: Microbiology 04/02/23 21:03 Blood Culture - Preliminary Blood SPECIMEN COLLECTED 04/02/23 21:00 Blood Culture - Preliminary Blood SPECIMEN COLLECTED A&P Assessment and plan (1) Goals of care, counseling/discussion: (2) Adult failure to thrive: (3) Oral candidiasis: (4) Esophageal candidiasis: (5) Urinary tract infection: Qualifiers: Hematuria presence: with hematuria Urinary tract infection type: acute cystitis Qualified Code(s): N30.01 - Acute cystitis with hematuria (6) Protein calorie malnutrition: (7) Physical deconditioning: (8) Muscle wasting: (9) Dehydration: (10) Hypokalemia: Plan Urinary tract infection -Obtain urine culture -Blood culture -CT kidney stone -Continue Rocephin Hypokalemia, with hypophosphatemia -Replace IV Hypomagnesemia -Replace IV Adult failure to thrive -Continue IV fluids -Consult speech -Consult dietary -Can consider peripheral nutrition in the meantime as she waits to go to [place] -We will need to discuss with [facility] in the morning, see if she can get a sooner appointment, or even consider transferring up there, as its been almost 1-1/2 weeks and she is had anything to eat, she is losing muscle mass, becoming deconditioned, losing weight Oral candidiasis, with concerns for esophageal candidiasis -IV Diflucan -Consider EGD based on clinical progress Radiation esophagitis -Possibly some of her swallowing difficulty could be related to her radiation therapy -Can consider starting therapy but I am worried that her oral candidiasis will worsen, for now we will continue Diflucan consider steroid therapy based on clinical progress Physical deconditioning, protein calorie malnutrition, muscle wasting, Goals of care discussion, patient is a full code Lovenox for DVT prophylaxis Attestations Medical Necessity Statement*: Patient requires hospitalization, inpatient, greater than 2 midnights, for UTI, hypokalemia 5 anemia hypomagnesemia, adult failure to thrive, dehydration, oral candidiasis with concerns of esophageal candidiasis, deconditioning, protein calorie malnutrition, patient has not had a drink or eaten in the last 1-1/2-week Diagnoses Goals of care, counseling/discussion Z71.89 Adult failure to thrive R62.7 Oral candidiasis B37.0 Esophageal candidiasis B37.81 Urinary tract infection N30.01 Hematuria presence: with hematuria Urinary tract infection type: acute cystitis Protein calorie malnutrition E46 Physical deconditioning R53.81 Muscle wasting M62.50 Dehydration E86.0 Hypokalemia E87.6
[2023-04-02 21:56] VITALS: BP 152/66; PULSE 58; RESP 16; O2SAT 95
[2023-04-02 22:09] LABS: C Reactive Protein 29.5 mg/L (0.0-4.9)
[2023-04-02 22:14] LABS: Procalcitonin 0.08 ng/mL (0-0.5)
[2023-04-02 22:18] LABS: Thyroid Stimulating Hormone 2.28 uIU/mL (0.27-4.20)
[2023-04-02] MEDS: magnesium sulfate premix 1 GM/100 ML PIGGYBACK IV (22:54)
[2023-04-02] MEDS: pantoprazole 40 mg SDV IVP (22:59)
[2023-04-02] MEDS: enoxaparin 40 mg/0.4 mL Syringe SUBCUT (23:00)
[2023-04-02 23:06] VITALS: BP 154/66; PULSE 61; RESP 17; TEMP 37.7; O2SAT 95
[2023-04-02] MEDS: fluconazole premix 200 MG/100 ML PREMIX 100 MG IV (23:09)
[2023-04-02] MEDS: dextrose 5%-sod chloride 0.9% 1,000 ML 125 ML IV (23:55)
[2023-04-03] VITALS (10 sets, daily range): BP systolic 131–156; BP diastolic 55–75; PULSE 58–64; RESP 16–19; TEMP 36.5–37.4; O2SAT 93–96
[2023-04-03] MEDS: potassium phosphate (mEq K) 40 MEQ in sodium chloride 0.9% (100 ml) 100 ML 27.27 MEQ IV (02:31)
[2023-04-03 05:48] LABS: Basophils % 0.2 %; Eosinophils # 0.1 10^3/uL (0.0-0.8); Hematocrit 36.4 % (36-47); Lymphocytes # 0.3 10^3/uL (0.8-4.8); Mean Corpuscular HGB Conc 32.7 g/dL (30-55); Mean Corpuscular Hemoglobin 27.6 pg (27-33); Mean Corpuscular Volume 84.5 fl (85-98); Mean Platelet Volume 10.8 fL (7.4-10.4); Monocytes # 0.4 10^3/uL (0.2-0.9); Monocytes % 7.4 %; Neutrophils # 4.98 10^3/uL (1.8-7.7); Neutrophils % 86.1 %; Nucleated Red Blood Cells % 0 %; Platelet Count 125 10^3/cmm (157-399); Red Blood Count 4.31 10^6/uL (3.85-5.65); White Blood Count 5.79 10^3/uL (3.29-11.43)
[2023-04-03 06:08] LABS: Blood Urea Nitrogen 13 mg/dL (8-23); Calcium 7.5 mg/dL (8.5-10.5); Carbon Dioxide 25 mmol/L (22-29); Chloride 101 mmol/L (98-107); Creatinine Clr Calc Pharmacy 48.9725; Glucose 126 mg/dL (65-115); Osmolality Calculated 290 mOsm/kg (285-295); Phosphorus 3.3 mg/dL (2.5-4.5); Sodium 139 mmol/L (136-145)
[2023-04-03 06:10] LABS: Anion Gap 16.8 (5-19); Potassium 3.8 mmol/L (3.5-5.1)
[2023-04-03] MEDS: nystatin 100,000 unit/mL UDC 5 mL 100000 UNIT PO (08:48)
[2023-04-03] MEDS: dextrose 5%-sod chloride 0.9% 1,000 ML 125 ML IV (08:49)
--- NOTE | 2023-04-03 09:40 | PC.PHAR ---
pts daughter verified pts medications-states the pt is unable to swallow tablets-states pt hasnt been taking most of her medications that are tablets for 2 weeks states cant swallow-states the pt has liquid morphine but states pt hasnt taken any of it-states the pt hasnt been taking her blood pressure meds but states the pts bp is good without it-states the pt is not taking the acyclovir 400mg filled 02/16/23 20d/s-notes are made in the pharmacy comments
--- NOTE | 2023-04-03 09:44 | P.PN_ITS ---
Subjective Subjective: I called [facility] requested transfer line to connect with the general surgeon to see if we can transfer her for J-tube noninvasive procedure I will request PICC line and TPN Patient is not able to tolerate oral nystatin Family is at the bedside Patient not complaining of active pain Endorsing mild nausea Vitals/I&O/Wt Last Vital Signs Temp 98.1 F 04/03/23 07:46 Pulse 64 04/03/23 07:46 Resp 19 H 04/03/23 07:46 BP 131/62 04/03/23 07:46 Pulse Ox 93 04/03/23 07:46 O2 Del Method Room Air 04/03/23 07:46 04/02/23 04/03/23 04/03/23 22:59 06:59 14:59 Intake Total 2075.417 / 2075.417 276.855 / 2352.272 1106.2386 / 1106.2386 Output Total 120 / 120 Balance 2075.417 / 2075.417 156.855 / 2232.272 1106.2386 / 1106.2386 Weight last 48 hrs Weight 63.503 kg Physical Exam Narrative: Malnourished Currently laying supine Left cheek hyperpigmentation Oral mucosa with candidiasis GCS 15 Awake and alert Pleasant cooperative 15 lethargic Family at the bedside Currently on room air Lower extremity nonpitting edema Data 04/03/23 04:54 04/03/23 04:54 Micro: Microbiology 04/02/23 19:15 Urine Culture - Preliminary Urine,Clean Catch Gram Negative Rods 04/02/23 21:03 Blood Culture - Preliminary Blood SPECIMEN COLLECTED 04/02/23 21:00 Blood Culture - Preliminary Blood SPECIMEN COLLECTED A&P Assessment and plan (1) Physical deconditioning: (2) Muscle wasting: (3) Dehydration: (4) Hypokalemia: (5) Acute UTI: (6) Hypokalemia: (7) Oral candidiasis: (8) Protein calorie malnutrition: (9) Esophageal candidiasis: (10) Adult failure to thrive: (11) Weakness: Plan UTI No signs of pyelonephritis Continue IV antibiotics Dehydration Patient has not eaten in the last 4 to 5 weeks Start TPN, requested PICC line placement Dietitian consult Protein calorie malnourishment noted Spoke with [facility] transfer center, I will speak with the surgeon to get/initiate transfer process for her noninvasive J-tube placement Patient has had multiple evaluations by a local surgeon and surgeons at [facility] who recommended [facility] for noninvasive J-tube placement Monitor for refeeding syndrome Continue IV fluids Oral candidiasis with concern for esophageal candidiasis, definitive diagnosis will be made after EGD, EGD not indicated at this point, I agree with continuation of IV antifungal Patient is full code Clear liquid diet DVT prophylaxis Lovenox Attestations Medical Necessity Statement*: Continue medical management Diagnoses Physical deconditioning R53.81 Muscle wasting M62.50 Dehydration E86.0 Hypokalemia E87.6 Acute UTI N39.0 Oral candidiasis B37.0 Protein calorie malnutrition E46 Esophageal candidiasis B37.81 Adult failure to thrive R62.7 Weakness R53.1
--- NOTE | 2023-04-03 09:55 | PC.CHAP ---
Pastoral Care Encounter/Spiritual Assessment Type of Contact [] Declined urgent care visit [] Patient/Family/Request visit [] Outpatient visit [] Follow-up visit [] Physician referral [] Code/Alert [x] Routine visit [] Staff referral [] Actively dying [] Patient sleeping [x] Family support [] [] Out of room [] Palliative care [] [] Receiving care in room [] Pre-surgical visit [] Trauma [] Long length of stay [] ICU visit [] Other: Relational/Emotional Strength [x] Patient feels connected with others/family/visitors/staff [] Distress [] Loneliness/isolation [] Abandonment Spirituality of Patient [x] Person of Georgina [] Attends Congregational of their Georgina [x] Believes in Prayer [] Reads Bible or Samaritan materials [] There are Spiritual issues to be addressed Valve Setter Interventions [x] Prayer [x] Active listening [] Non-anxious presence [x] Spiritual/emotional support [] Crisis/trauma care [] Spiritual counseling [] Bereavement support [] Provided bereavement packet [] Provided Bible/devotional materials [] Provided toy/stuffed animal, coloring book to patient or family member [] Provided Communion [] Anointing/[place] [] Salvation [x] Completed spiritual assessment [] Other: Impact on Illness or Injury [] Angry [] Fearful [] Anxious [] Often cries [] Exhaustion [] Unable to work [] Unable to attend catholic [] Unable to walk/stand [] Unable to read [] Unable to drive [] Unable to eat/drink [] Unable to sleep [] Unable to be with family [] Patient intubated [] Other: Summary Time spent with patient 10 min
--- NOTE | 2023-04-03 11:50 | XR_ITS ---
WS: [id number] PORTABLE CHEST HISTORY: Post PICC insertion COMPARISON: 03/27/2023 Right-sided PICC line in good position with tip in the distal SVC. Hyperinflated lungs. Interstitial thickening and chronic interstitial changes. No pneumonia. Small RI GHT pleural effusion is suspected. Cardiac size: Mildly enlarged cardiac silhouette. Mediastinum/Aorta: Mild atherosclerosis aorta. Osteopenia. IMPRESSION: Satisfactory positioning of the RIGHT PICC line. Chronic emphysema. No pneumonia.
--- NOTE | 2023-04-03 12:15 | PC.NURSE ---
Double lumen PICC placed to right basilic. Referred to PICC nurse for PICC insertion for TPN. Pt daughter at bedside. Risks and benefits discussed with patient and daughter. Informed consent obtained from pt daughter. Right arm assessed with right basilic vein measuring 5 mm, straight, and apparent best choice for placement. Using sterile technique and MST, right basilic accessed x 1 stick. Mid-arm circumference measured 10 cm from right AC 27 cm. Trimmed cath 40 cm with 0 cm external length noted. CXR confirms tip in distal SVC, in good position for use per radiologist. Line secured with stat-lock. Insertion site covered with Biopatch and TSM. Report given to charge nurseFrancisca.
[2023-04-03] MEDS: AA-Dex 5%-20% w/Lytes 1,000 ML with multivitamin inj 10 ML 12 ML IV (14:57)
--- NOTE | 2023-04-03 17:43 | PC.SLP ---
Patient unable to participate in dysphagia assessment today due to significant mouth and throat pain. HERB DOCTOR will follow up with the patient on a later date.
[2023-04-03] MEDS: dextrose 5%-sod chloride 0.9% 1,000 ML 70 ML IV (20:19)
[2023-04-03] MEDS: cefTRIAXone 1,000 MG in sodium chloride 0.9% (plus) 50 ML 100 MG IV (20:23)
[2023-04-03] MEDS: fluconazole premix 100 MG in empty flexible container 1 EACH 50 MG IV (21:39)
[2023-04-03] MEDS: enoxaparin 40 mg/0.4 mL Syringe SUBCUT (21:39)
[2023-04-03] MEDS: pantoprazole 40 mg SDV IVP (21:39)
[2023-04-04] VITALS (9 sets, daily range): BP systolic 135–157; BP diastolic 62–85; PULSE 63–75; RESP 14–20; TEMP 36.4–37.1; O2SAT 93–94
[2023-04-04 05:48] LABS: Basophils % 0.4 %; Eosinophils # 0.1 10^3/uL (0.0-0.8); Eosinophils % 2.1 %; Hematocrit 33.4 % (36-47); Lymphocytes # 0.3 10^3/uL (0.8-4.8); Lymphocytes % 5.1 %; Mean Corpuscular HGB Conc 33.2 g/dL (30-55); Mean Corpuscular Hemoglobin 27.6 pg (27-33); Mean Corpuscular Volume 83.1 fl (85-98); Mean Platelet Volume 10.9 fL (7.4-10.4); Monocytes # 0.4 10^3/uL (0.2-0.9); Monocytes % 6.8 %; Neutrophils # 4.51 10^3/uL (1.8-7.7); Neutrophils % 84.8 %; Nucleated Red Blood Cells % 0 %; Platelet Count 115 10^3/cmm (157-399); Red Blood Count 4.02 10^6/uL (3.85-5.65); White Blood Count 5.31 10^3/uL (3.29-11.43)
[2023-04-04 06:06] LABS: Anion Gap 9.8 (5-19); Blood Urea Nitrogen 7 mg/dL (8-23); Calcium 7.5 mg/dL (8.5-10.5); Carbon Dioxide 26 mmol/L (22-29); Chloride 106 mmol/L (98-107); Creatinine Clr Calc Pharmacy 48.9725; Glucose 136 mg/dL (65-115); Magnesium 1.6 mg/dL (1.7-2.3); Osmolality Calculated 288 mOsm/kg (285-295); Phosphorus 1.9 mg/dL (2.5-4.5); Sodium 139 mmol/L (136-145)
[2023-04-04 06:13] LABS: Potassium 2.8 mmol/L (3.5-5.1)
[2023-04-04] MEDS: lidocaine 1% 5 ML in potassium chloride premix 100 ML 25 ML IV (06:26)
[2023-04-04] MEDS: magnesium sulfate premix 1 GM/100 ML PIGGYBACK IV (09:19)
--- NOTE | 2023-04-04 09:32 | PM.PN ---
Subjective Subjective: No overnight events Leg cramps improved, she is not able to take anything p.o., she was given IV morphine last night Replenished electrolytes this morning Family at the bedside Awaiting bed number from [place] She has been accepted by the ENT and general surgery service at [place], COBRA form has been signed and left at the charge nurse station Vitals/I&O/Wt Last Vital Signs Temp 97.5 F L 04/04/23 07:40 Pulse 71 04/04/23 07:40 Resp 20 H 04/04/23 07:40 BP 142/65 04/04/23 07:40 Pulse Ox 93 04/04/23 07:40 O2 Del Method Room Air 04/04/23 07:40 04/03/23 04/04/23 04/04/23 22:59 06:59 14:59 Intake Total 1150.00 / 2256.2386 1051.700 / 3307.9386 Balance 1150.00 / 2256.2386 1051.700 / 3307.9386 Weight last 48 hrs Weight 63.503 kg Physical Exam Narrative: Patient is laying supine No active complaints Currently on room air TPN running at the bedside Abdomen soft Oral candidiasis no significant improvement in white buccal mucosa patches as compared to yesterday Nonfocal neuro exam Currently laying without any active discomfort No active emesis Signs of dehydration present Data 04/04/23 05:30 04/04/23 05:30 Micro: Microbiology 04/02/23 21:03 Blood Culture - Preliminary Blood NEGATIVE TO DATE 04/02/23 21:00 Blood Culture - Preliminary Blood NEGATIVE TO DATE 04/02/23 19:15 Urine Culture - Preliminary Urine,Clean Catch Gram Negative Rods A&P Assessment and plan (1) Refeeding syndrome: (2) Hypokalemia: (3) Acute UTI: (4) Hypokalemia: (5) Dehydration: (6) Muscle wasting: (7) Physical deconditioning: (8) Protein calorie malnutrition: (9) Oral candidiasis: (10) Esophageal candidiasis: (11) Adult failure to thrive: Plan Refeeding syndrome Potassium replenished, potassium was 2.8 Phosphorus 1.9 magnesium 1.6, will replenish today Recheck labs tomorrow Continue parenteral nutrition Patient is afebrile Continue antibiotics for UTI For oral candidiasis with concern for esophageal candidiasis we will continue IV fluconazole Full code Awaiting transfer to [place] for internal feeding access Attestations Medical Necessity Statement*: Continue medical management Coding Level of Care Code Acute Code for Chg Fwd Diagnoses Refeeding syndrome E87.8 Hypokalemia E87.6 Acute UTI N39.0 Dehydration E86.0 Muscle wasting M62.50 Physical deconditioning R53.81 Protein calorie malnutrition E46 Oral candidiasis B37.0 Esophageal candidiasis B37.81 Adult failure to thrive R62.7
[2023-04-04] MEDS: potassium phosphate (mEq K) 40 MEQ in sodium chloride 0.9% (100 ml) 100 ML 27.27 MEQ IV (12:20)
[2023-04-04] MEDS: cefTRIAXone 1,000 MG in sodium chloride 0.9% (plus) 50 ML 100 MG IV (20:04)
[2023-04-04] MEDS: enoxaparin 40 mg/0.4 mL Syringe SUBCUT (20:55)
[2023-04-04] MEDS: pantoprazole 40 mg SDV IVP (21:44)
[2023-04-04] MEDS: fluconazole premix 100 MG in empty flexible container 1 EACH 50 MG IV (21:44)
[2023-04-05] VITALS (10 sets, daily range): BP systolic 117–143; BP diastolic 49–72; PULSE 69–81; RESP 14–17; TEMP 36.6–36.7; O2SAT 92–95
[2023-04-05] MEDS: dextrose 5%-sod chloride 0.9% 1,000 ML 70 ML IV ×2 (04:43→19:01)
[2023-04-05 04:51] LABS: Glucose Point of Care 85 mg/dL (70-110)
[2023-04-05] MEDS: AA-Dex 5%-20% w/Lytes 1,000 ML with multivitamin inj 10 ML 42 ML IV ×2 (05:09→23:10)
[2023-04-05 05:35] LABS: Basophils % 0.2 %; Eosinophils # 0.2 10^3/uL (0.0-0.8); Eosinophils % 3.6 %; Hematocrit 35.8 % (36-47); Lymphocytes # 0.4 10^3/uL (0.8-4.8); Lymphocytes % 10.4 %; Mean Platelet Volume 10.4 fL (7.4-10.4); Monocytes # 0.3 10^3/uL (0.2-0.9); Monocytes % 7.3 %; Neutrophils # 3.21 10^3/uL (1.8-7.7); Nucleated Red Blood Cells % 0 %; Platelet Count 117 10^3/cmm (157-399); Red Blood Count 4.21 10^6/uL (3.85-5.65); Red Cell Distribution Width 13.3 % (12.1-15.1); White Blood Count 4.12 10^3/uL (3.29-11.43)
[2023-04-05 05:55] LABS: Alanine Aminotransferase < 5 U/L (0-33); Albumin Level 2.5 g/dL (3.5-5.2); Alkaline Phosphatase 41 U/L (35-105); Anion Gap 12.3 (5-19); Aspartate Amino Transferase 9 U/L (0-32); Blood Urea Nitrogen 8 mg/dL (8-23); Calcium 7.5 mg/dL (8.5-10.5); Carbon Dioxide 25 mmol/L (22-29); Chloride 103 mmol/L (98-107); Creatinine Clr Calc Pharmacy 48.9725; Globulin 2.1 g/dL (1.3-4.6); Glucose 111 mg/dL (65-115); Osmolality Calculated 283 mOsm/kg (285-295); Potassium 3.3 mmol/L (3.5-5.1); Sodium 137 mmol/L (136-145); Total Bilirubin 0.4 mg/dL (0.15-1.2); Total Protein 4.6 g/dL (6.6-8.7)
[2023-04-05 05:59] LABS: Magnesium 1.9 mg/dL (1.7-2.3)
--- NOTE | 2023-04-05 09:42 | PM.TDS ---
Transfer Summary Providers Date of Admission: 04/02/23 21:39 Date of Discharge/Transfer: 04/06/23 Attending Provider at Admission: Clint Mead MD Attending Provider at Transfer: Davion Salgado MD Primary Care Provider: Wendi Roblero MD Transfer Plans: Anticipated date of transfer: 04/06/23. 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, status post chemoradiation, recently had radiation therapy, recent history of adult failure to thrive secondary to inability to swallow due to head and neck radiation, difficult to place PEG tube due to large hiatal hernia, referred to [facility] for surgical consideration, surgeons in [facility], recommended for patient to be seen at [facility] as her case is complicated, who presents [facility] due to inability to swallow, eat or drink for the for last 4 to 5 days, she has lost significant amount of weight as per the family she has lost 30 to 40 pounds, she was admitted, started on TPN via a PICC line, electrolytes were replenished, she suffered from refeeding syndrome, her phosphate, magnesium potassium replenished aggressively. Remained hemodynamically stable and afebrile. Case was presented to [facility]. Patient has been accepted by ENT and general surgery for J-tube placement. Physical Exam Narrative: Patient is awake and alert Signs of dehydration improving PICC line in place, TPN running at the bedside Pleasant and cooperative Left cheek area hyperpigmented, Patient is awake and alert pleasant and cooperative Currently on room air TS Data Studies Completed and Pending Pending at discharge Category Date Time Status Blood Culture Stat Lab 04/02/23 21:03 Results Labs from last 24 hours 04/05/23 04/05/23 04/05/23 05:26 05:26 05:26 WBC 4.12 RBC 4.21 Hgb 11.80 Hct 35.8 L MCV 85.0 MCH 28.0 MCHC 33.0 RDW 13.3 Plt Count 117 L MPV 10.4 Neut % (Auto) 78.0 Lymph % (Auto) 10.4 Taney % (Auto) 7.3 Eos % (Auto) 3.6 Baso % (Auto) 0.2 Neut # (Auto) 3.21 Lymph # (Auto) 0.4 L Taney # (Auto) 0.3 Eos # (Auto) 0.2 Baso # (Auto) 0.0 Nucleated RBC % (auto) 0 Nucleated RBCs # 0.0 Sodium 137 Potassium 3.3 L Chloride 103 Carbon Dioxide 25 Anion Gap 12.3 BUN 8 Creatinine 0.6 GFR Calculation Not Reportable Glucose 111 POC Glucose Calculated Osmolality 283 L Calcium 7.5 L Phosphorus 3.0 D Magnesium 1.9 Total Bilirubin 0.4 AST 9 ALT < 5 Alkaline Phosphatase 41 Total Protein 4.6 L Albumin 2.5 L Globulin 2.1 04/05/23 04:47 WBC RBC Hgb Hct MCV MCH MCHC RDW Plt Count MPV Neut % (Auto) Lymph % (Auto) Taney % (Auto) Eos % (Auto) Baso % (Auto) Neut # (Auto) Lymph # (Auto) Taney # (Auto) Eos # (Auto) Baso # (Auto) Nucleated RBC % (auto) Nucleated RBCs # Sodium Potassium Chloride Carbon Dioxide Anion Gap BUN Creatinine GFR Calculation Glucose POC Glucose 85 Calculated Osmolality Calcium Phosphorus Magnesium Total Bilirubin AST ALT Alkaline Phosphatase Total Protein Albumin Globulin Completed Studies During Hospitalization Category Date Time Status CT kidney stone [id number] Stat Cat Scan 04/02/23 21:42 Completed CXRP [XR chest 1V portable [id number]] Routine Exams 04/03/23 11:50 Completed Laboratory Last Values WBC 4.12 10^3/uL (3.29-11.43) 04/05/23 05:26 RBC 4.21 10^6/uL (3.85-5.65) 04/05/23 05:26 Hgb 11.80 g/dL (11.27-16.99) 04/05/23 05:26 Hct 35.8 % (36-47) L 04/05/23 05:26 MCV 85.0 fl (85-98) 04/05/23 05:26 MCH 28.0 pg (27-33) 04/05/23 05:26 MCHC 33.0 g/dL (30-55) 04/05/23 05:26 RDW 13.3 % (12.1-15.1) 04/05/23 05:26 Plt Count 117 10^3/cmm (157-399) L 04/05/23 05:26 MPV 10.4 fL (7.4-10.4) 04/05/23 05:26 Neut % (Auto) 78.0 % 04/05/23 05:26 Lymph % (Auto) 10.4 % 04/05/23 05:26 Taney % (Auto) 7.3 % 04/05/23 05:26 Eos % (Auto) 3.6 % 04/05/23 05:26 Baso % (Auto) 0.2 % 04/05/23 05:26 Neut # (Auto) 3.21 10^3/uL (1.8-7.7) 04/05/23 05:26 Lymph # (Auto) 0.4 10^3/uL (0.8-4.8) L 04/05/23 05:26 Taney # (Auto) 0.3 10^3/uL (0.2-0.9) 04/05/23 05:26 Eos # (Auto) 0.2 10^3/uL (0.0-0.8) 04/05/23 05:26 Baso # (Auto) 0.0 10^3/uL (0.0-0.1) 04/05/23 05:26 Nucleated RBC % (auto) 0 % 04/05/23 05:26 Nucleated RBCs # 0.0 /100WBC 04/05/23 05:26 Sodium 137 mmol/L (136-145) 04/05/23 05:26 Potassium 3.3 mmol/L (3.5-5.1) L 04/05/23 05:26 Chloride 103 mmol/L (98-107) 04/05/23 05:26 Carbon Dioxide 25 mmol/L (22-29) 04/05/23 05:26 Anion Gap 12.3 (5-19) 04/05/23 05:26 BUN 8 mg/dL (8-23) 04/05/23 05:26 Creatinine 0.6 mg/dL (0.5-0.9) 04/05/23 05:26 GFR Calculation Not Reportable 04/05/23 05:26 Glucose 111 mg/dL (65-115) 04/05/23 05:26 POC Glucose 85 mg/dL (70-110) 04/05/23 04:47 Calculated Osmolality 283 mOsm/kg (285-295) L 04/05/23 05:26 Calcium 7.5 mg/dL (8.5-10.5) L 04/05/23 05:26 Phosphorus 3.0 mg/dL (2.5-4.5) D 04/05/23 05:26 Magnesium 1.9 mg/dL (1.7-2.3) 04/05/23 05:26 Total Bilirubin 0.4 mg/dL (0.15-1.2) 04/05/23 05:26 AST 9 U/L (0-32) 04/05/23 05:26 ALT < 5 U/L (0-33) 04/05/23 05:26 Alkaline Phosphatase 41 U/L (35-105) 04/05/23 05:26 Creatine Kinase 23 U/L (26-192) L 04/02/23 19:47 C-Reactive Protein 29.5 mg/L (0.0-4.9) H 04/02/23 19:47 Total Protein 4.6 g/dL (6.6-8.7) L 04/05/23 05:26 Albumin 2.5 g/dL (3.5-5.2) L 04/05/23 05:26 Globulin 2.1 g/dL (1.3-4.6) 04/05/23 05:26 Procalcitonin 0.08 ng/mL (0-0.5) 04/02/23 19:47 TSH 2.28 uIU/mL (0.27-4.20) 04/02/23 19:47 Urine Color Yellow (Yellow) 04/02/23 19:15 Urine Appearance Cloudy (CLEAR) A 04/02/23 19:15 Urine pH 6 (5-7) 04/02/23 19:15 Ur Specific Jackson 1.020 (1.005-1.030) 04/02/23 19:15 Urine Protein 1+ (Negative) H 04/02/23 19:15 Urine Glucose (UA) Norm (Normal) 04/02/23 19:15 Urine Ketones 2+ (Negative) H 04/02/23 19:15 Urine Blood 2+ (Negative) H 04/02/23 19:15 Urine Nitrate Positive (Negative) H 04/02/23 19:15 Urine Bilirubin 1+ (Negative) H 04/02/23 19:15 Urine Urobilinogen 4 mg/dL (Negative) H 04/02/23 19:15 Ur Leukocyte Esterase 2+ (Negative) H 04/02/23 19:15 Urine RBC 0-4 /hpf (0-2) H 04/02/23 19:15 Urine WBC Too numerous to cnt /hpf (0-5) H 04/02/23 19:15 Ur Squamous Epith Cells 0-4 /hpf (0-5) H 04/02/23 19:15 Amorphous Sediment Not Reportable 04/02/23 19:15 Urine Bacteria 3+ /hpf (NONE) H 04/02/23 19:15 Radiology Impressions Abdomen/Pelvis CT 04/02/23 21:42 IMPRESSION: 1. Minimal perinephric edema bilaterally likely reflecting renal insufficiency, please correlate for pyelonephritis. 2. Scattered periaortic subcentimeter lymph nodes, nonspecific. 3. Coronary artery atherosclerotic calcifications. 4. 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 5. Small bilateral right greater than left pleural effusions. 6. Bibasilar atelectasis versus infiltrate. 7. Left lower lobe 9.2 mm pulmonary nodule, dedicated nonemergent chest CT advised for further evaluation. 8. Bilateral calcified splenic granulomas. 9. Cholecystectomy. 10. Right kidney cyst, negative follow-up advised. COMMENTS: Consistent with the [employer]'s Incidental Findings Committee white paper (J Am Joni Radiol 2018): Any incidental renal lesion less than 1 cm or classified as too small to characterize, or any incidental cystic renal lesion characterized as simple-appearing, is likely benign. No follow-up imaging is recommended for these lesions per consensus recommendations based on imaging criteria. Recent Clincial Data Last Vital Signs Temp 98.1 F 04/05/23 03:52 Pulse 72 04/05/23 08:00 Resp 15 04/05/23 08:00 BP 127/72 04/05/23 08:00 Pulse Ox 92 04/05/23 07:44 O2 Del Method Room Air 04/05/23 07:44 Vital Signs Temp Pulse Resp BP Pulse Ox O2 Del Method 04/05/23 08:00 72 15 127/72 04/05/23 07:44 72 15 127/72 92 Room Air 04/05/23 06:00 72 04/05/23 03:52 98.1 F 71 14 117/71 92 04/04/23 23:49 97.8 F 74 14 157/85 94 Room Air 04/04/23 22:00 70 Intake & Output/Weight 04/03/23 04/04/23 04/05/23 04/06/23 06:59 06:59 06:59 06:59 Intake Total 2352.272 / 2352.272 3307.9386 / 3307.9386 1402.6436 / 1402.6436 Output Total 120 / 120 Balance 2232.272 / 2232.272 3307.9386 / 3307.9386 1402.6436 / 1402.6436 Weight 63.503 kg Vitals Last Vital Signs Temp 98.1 F 04/05/23 03:52 Pulse 72 04/05/23 08:00 Resp 15 04/05/23 08:00 BP 127/72 04/05/23 08:00 Pulse Ox 92 04/05/23 07:44 O2 Del Method Room Air 04/05/23 07:44 TS Medications Medications Acetaminophen (Acetaminophen 325 Mg Tablet) 650 mg PO Q6H PRN PRN Reason: Mild/Mod Pain Or Temp >/= 101 Alprazolam (Alprazolam 0.5 Mg Tablet) 0.25 mg PO BEDTIME PRN PRN Reason: SLEEP Enoxaparin Sodium (Enoxaparin 40 Mg/0.4 Ml Syringe) 40 mg SUBCUT Q24H [facility] Last Admin: 04/04/23 20:55 Dose: 40 mg Fluconazole 100 mg/ N/A 50 mls @ 50 mls/hr IV Q24H [facility] Stop: 04/08/23 09:00 Last Infusion: 04/04/23 22:59 Dose: Infused Ceftriaxone Sodium 1,000 mg/ (Sodium Chloride) 50 mls @ 100 mls/hr IV Q24H [facility]; Protocol Last Infusion: 04/04/23 20:42 Dose: Infused Dextrose/Sodium Chloride (Dextrose 5%-Sod Chloride 0.9%) 1,000 mls @ 70 mls/hr IV .[id number] [facility] Last Admin: 04/05/23 04:43 Dose: 70 mls/hr Multivitamins 10 ml/ Amino (Acids/Electrolytes) 1,010 mls @ 0 mls/hr IV .Q0M [facility]; Protocol Last Admin: 04/05/23 05:09 Dose: 42 mls/hr Fat Emulsion Intravenous (Intralipid 20%) 250 mls @ 20.833 mls/hr IV Q24H [facility] Last Infusion: 04/05/23 04:42 Dose: Infused Morphine Sulfate (Morphine 4 Mg/Ml Sdv 1 Ml) 2 mg IVP Q4H PRN PRN Reason: SEVERE PAIN Naloxone HCl (Naloxone 0.4 Mg/Ml Sdv) 0.1 mg IVP Q2M PRN PRN Reason: OPIATERV Nystatin (Nystatin 100,000 Unit/Ml Udc 5 Ml) 100,000 unit PO QID [facility] Last Admin: 04/03/23 08:48 Dose: 100,000 unit Ondansetron HCl (Ondansetron 2 Mg/Ml Sdv 2 Ml) 4 mg IVP Q8H PRN PRN Reason: vomiting, or N/V if npo Pantoprazole Sodium (Pantoprazole 40 Mg Sdv) 40 mg IVP Q24H [facility] Last Admin: 04/04/23 21:44 Dose: 40 mg Promethazine HCl (Promethazine 25 Mg/Ml Sdv 1 Ml) 12.5 mg IM Q6H PRN PRN Reason: NAUSEA Discontinued Medications Sodium Chloride (Sodium Chloride 0.9%) 1,000 mls @ 999 mls/hr IV .Q1H1M [facility] Stop: 04/02/23 21:15 Last Infusion: 04/02/23 22:01 Dose: Infused Ceftriaxone Sodium 1,000 mg/ (Sodium Chloride) 50 mls @ 100 mls/hr IV ONCE ONE; Protocol Stop: 04/02/23 20:21 Last Infusion: 04/02/23 20:58 Dose: Infused Potassium Chloride (K-Damion) 100 mls @ 25 mls/hr IV ONCE ONE Stop: 04/03/23 00:27 Last Infusion: 04/03/23 02:36 Dose: Infused Magnesium Sulfate/Dextrose (Magnesium Sulfate Premix) 1 gm in 100 mls @ 200 mls/hr IV ONCE ONE Stop: 04/02/23 22:11 Last Infusion: 04/02/23 23:52 Dose: Infused Fluconazole (Diflucan Premix) 200 mg in 100 mls @ 100 mls/hr IV Q24H [facility] Stop: 04/02/23 22:44 Last Infusion: 04/03/23 00:24 Dose: Infused Potassium Phosphate 40 meq/ (Sodium Chloride) 108.5106 mls @ 27.273 mls/hr IV ONCE ONE Stop: 04/03/23 02:13 Last Infusion: 04/03/23 07:20 Dose: Infused Lidocaine HCl 5 ml/ Potassium (Chloride) 105 mls @ 26.25 mls/hr IV ONCE ONE Stop: 04/04/23 10:29 Last Infusion: 04/04/23 10:56 Dose: Infused Lidocaine HCl 5 ml/ Potassium (Chloride) 105 mls @ 26.25 mls/hr IV ONCE ONE Stop: 04/04/23 12:29 Last Admin: 04/04/23 09:51 Dose: Not Given Magnesium Sulfate/Dextrose (Magnesium Sulfate Premix) 1 gm in 100 mls @ 200 mls/hr IV ONCE ONE Stop: 04/04/23 08:44 Last Infusion: 04/04/23 09:51 Dose: Infused Potassium Phosphate 40 meq/ (Sodium Chloride) 108.5106 mls @ 27.273 mls/hr IV ONCE ONE Stop: 04/04/23 13:58 Last Infusion: 04/04/23 16:22 Dose: Infused Allergies No Known Allergies Allergy (Verified 04/03/23 09:27) Home Medications albuterol sulfate 90 mcg/actuation aerosol inhaler 2 puff inhalation Q4H PRN Shortness Of Breath 11/09/22 [History Confirmed 04/03/23] amlodipine 5 mg tablet 5 mg PO DAILY 11/09/22 [History Confirmed 04/03/23] cetirizine 10 mg tablet (Zyrtec) 10 mg PO DAILY PRN Allergy Symptoms 11/09/22 [History Confirmed 04/03/23] famotidine 20 mg tablet 20 mg PO DAILY 11/09/22 [History Confirmed 04/03/23] metoprolol succinate 100 mg tablet,extended release 24 hr 50 mg PO DAILY 11/09/22 [History Confirmed 04/03/23] olmesartan 40 mg tablet 40 mg PO DAILY 11/09/22 [History Confirmed 04/03/23] pravastatin 20 mg tablet 20 mg PO DAILY 11/09/22 [History Confirmed 04/03/23] alprazolam 0.25 mg tablet 0.25 mg PO BEDTIME PRN Anxiety 11/17/22 [History Confirmed 04/03/23] cholecalciferol (vitamin D3) 25 mcg (1,000 unit) capsule 25 mcg PO DAILY 11/17/22 [History Confirmed 04/03/23] fluconazole 100 mg tablet 100 mg PO DAILY #30 tabs 02/16/23 [Rx Confirmed 04/03/23] lidocaine HCl 2 % mucosal solution (Lidocaine Viscous) 5 ml mucous membrane QID PRN pain to use a swish and swallow #100 mL 03/12/23 [Rx Confirmed 04/03/23] Lidomaaloxdiphen/[id number] See Rx Instructions .Route .COMPLEX 04/03/23 [History Confirmed 04/03/23] morphine concentrate 100 mg/5 mL (20 mg/mL) oral solution See Rx Instructions .Route .COMPLEX 04/03/23 [History Confirmed 04/03/23] ondansetron 4 mg disintegrating tablet 4 mg PO Q6H PRN Nausea And Vomiting 04/03/23 [History Confirmed 04/03/23] Discharge Plan Discharge Patient Disposition: Xfer Other Condition: Fair Prescriptions: Continued cholecalciferol (vitamin D3) 25 mcg (1,000 unit) capsule 25 mcg PO DAILY fluconazole 100 mg tablet 100 mg PO DAILY Qty: 30 0RF cetirizine [Zyrtec] 10 mg Tablet 10 mg PO DAILY PRN (Reason: Allergy Symptoms) metoprolol succinate 100 mg tablet extended release 24 hr 50 mg PO DAILY amlodipine 5 mg tablet 5 mg PO DAILY famotidine 20 mg tablet 20 mg PO DAILY pravastatin 20 mg tablet 20 mg PO DAILY albuterol sulfate 90 mcg/actuation HFA aerosol inhaler 2 puff INHALATION Q4H PRN (Reason: Shortness Of Breath) olmesartan 40 mg tablet 40 mg PO DAILY alprazolam 0.25 mg tablet 0.25 mg PO BEDTIME PRN (Reason: Anxiety) lidocaine HCl [Lidocaine Viscous] 2 % solution 5 ml mucous membrane QID PRN (Reason: pain to use a swish and swallow) Qty: 100 0RF morphine concentrate 100 mg/5 mL (20 mg/mL) solution See Rx Instructions .ROUTE .COMPLEX Rx Instructions: TAKE 1/4-1/2 ML SUBLINGUALLY EVERY 4 HOURS NEEDED FOR PAIN ondansetron 4 mg tablet,disintegrating 4 mg PO Q6H PRN (Reason: Nausea And Vomiting) Lidomaaloxdiphen/[id number] See Rx Instructions .ROUTE .COMPLEX Rx Instructions: SWISH AND SWALLOW 10ML EVERY 4 HOURS NEEDED FOR PAIN Referrals: Wendi Roblero MD [Primary Care Provider] - Patient Instructions: Opioid Safety Transfer Attestations Time Spent in Transfer Care: greater than 30 min Status at Transfer: Cognitive status at transfer: cognitively intact; Behavioral status at transfer: cooperative; Quality Metrics Clinical Quality Measures [ No reported AMI, CVA or VTE this stay] Coding Level of Care Code Acute Code for Chg Fwd Diagnoses Refeeding syndrome E87.8 Hypokalemia E87.6 Acute UTI N39.0 Dehydration E86.0 Muscle wasting M62.50 Physical deconditioning R53.81 Protein calorie malnutrition E46 Oral candidiasis B37.0 Esophageal candidiasis B37.81 Adult failure to thrive R62.7
--- NOTE | 2023-04-05 09:45 | PM.PN ---
Subjective Subjective: Doing well Awaiting bed number from [place] Potassium 3.3,Phosphorus and magnesium improved Vitals/I&O/Wt Last Vital Signs Temp 98.1 F 04/05/23 03:52 Pulse 72 04/05/23 08:00 Resp 15 04/05/23 08:00 BP 127/72 04/05/23 08:00 Pulse Ox 92 04/05/23 07:44 O2 Del Method Room Air 04/05/23 07:44 04/04/23 04/05/23 04/05/23 22:59 06:59 14:59 Intake Total 208.5106 / 413.5106 989.133 / 1402.6436 Balance 208.5106 / 413.5106 989.133 / 1402.6436 Physical Exam Narrative: Awake and alert Signs of dehydration improving GCS 15 Currently on room air Pleasant and cooperative Data 04/05/23 05:26 04/05/23 05:26 Micro: Microbiology 04/02/23 19:15 Urine Culture - Final Urine,Clean Catch Escherichia coli esbl A&P Assessment and plan (1) Refeeding syndrome: (2) Hypokalemia: (3) Acute UTI: (4) Hypokalemia: (5) Dehydration: (6) Muscle wasting: (7) Physical deconditioning: (8) Protein calorie malnutrition: (9) Oral candidiasis: (10) Esophageal candidiasis: (11) Adult failure to thrive: Plan Refeeding syndrome: Replenish potassium Phosphorus and magnesium improved Awaiting bed number from [place] She has been accepted by the ENT and general surgery Continue antifungal and antibiotics for UTI and candidiasis esophageal/oral Attestations Medical Necessity Statement*: Awaiting bed number Diagnoses Refeeding syndrome E87.8 Hypokalemia E87.6 Acute UTI N39.0 Dehydration E86.0 Muscle wasting M62.50 Physical deconditioning R53.81 Protein calorie malnutrition E46 Oral candidiasis B37.0 Esophageal candidiasis B37.81 Adult failure to thrive R62.7
[2023-04-05] MEDS: lidocaine 1% 5 ML in potassium chloride premix 100 ML 25 ML IV (10:40)
--- NOTE | 2023-04-05 11:10 | PC.SOCIAL ---
IMM Update pg 2 of IMM updated and reviewed w/ patient. Copy provided. Copy dated, initialed and placed in chart.
--- NOTE | 2023-04-05 11:12 | PC.SOCIAL ---
IMM Update pg 2 of IMM updated and reviewed w/ patient. Copy provided and copy dated, initialed and placed in chart.
--- NOTE | 2023-04-05 20:22 | PC.NURSE ---
Report called to Andreea Penny RN at [facility] at [phone]. [facility] called for transport. Patient and family aware.
[2023-04-05] MEDS: hyDROXYzine 25 mg Capsule PO (21:06)
--- NOTE | 2023-04-05 21:33 | PC.NURSE ---
[facility] ambulance called this nurse and stated they were unable to transport patient due to staffing issues. They suggested [facility] for transport. Patient consulted on this and agreed if available. [facility] called and informed of situation and accepted transport. Patient informed and understands. [facility] notified of change. [facility] then called back and stated the original flight had to cancel due to weather, but they are calling a different flight to see of they are clear for flight. Awaiting return call.
--- NOTE | 2023-04-05 21:45 | PC.NURSE ---
[facility] returned call and stated a new flight is in route and will be at facility at approximately 2230. Patient updated and nurse taking over patient care at [place] updated.
--- NOTE | 2023-04-05 23:24 | PC.NURSE ---
Patient left facility via [facility].
== END 2023-04-05 23:44 | disposition short-term general hospital (02) | DRG 392 ==
LOC: ER 19:20 → MEDSURG 23:03
PROVIDERS: Admitting Provider Family Medicine; Emergency Provider Emergency Medicine; PCP Family Medicine; Visit Provider Internal Medicine
DX: K22.2 Esophageal obstruction (principal); N39.0 Urinary tract infection, site not specified; E46 Unspecified protein-calorie malnutrition; B37.81 Candidal esophagitis; W88.1XXA Exposure to radioactive isotopes, initial encounter; Z75.1 Person awaiting admission to adequate facility elsewhere; E87.6 Hypokalemia; B96.20 Unspecified Escherichia coli [E. coli] as the cause of diseases classified elsewhere; E86.0 Dehydration; Z68.24 Body mass index [BMI] 24.0-24.9, adult; C06.0 Malignant neoplasm of cheek mucosa; Z92.21 Personal history of antineoplastic chemotherapy; Z79.899 Other long term (current) drug therapy; K44.9 Diaphragmatic hernia without obstruction or gangrene; Z79.891 Long term (current) use of opiate analgesic; D64.9 Anemia, unspecified; E83.42 Hypomagnesemia; I10 Essential (primary) hypertension
CPT/HCPCS: 36415; 36416; 36573; 71045; 74176; 80048; 80053; 81001; 82550; 82962; 83735; 84100; 84145; 84443; 85025; 86140; 87040; 87077; 87086; 87186; 93005; 96372; C9113; J0696; J1450; J1650; J3475; J3480; J7030; J7042; Q3014

== ENCOUNTER 2023-05-01 09:52 | Outpatient (CLI) | payer MEDICARE, MEDICAID, SELFPAY ==
--- NOTE | 2023-05-01 09:56 | CT_ITS ---
WS: [id number] CT NECK TECHNIQUE: Contrast-enhanced CT of the neck with coronal and sagittal reformatted images. 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 FINDINGS: Partially evaluated nodules in the upper lobes. 6 mm nodule in RIGHT upper lobe laterally appears sli ghtly progressed today. Cavitary nodule in the LEFT upper lobe appears new measuring 12.6 mm. Recomme nd further evaluation with chest CT. Partially visualized RIGHT pleural effusion with adjacent nodule measuring 7mm. Metastatic disease not excluded. Fibrotic nodularity in the lung apices similar to pr evious. Mastoid air cells are well aerated. Polypoid mucosal thickening in the LEFT maxillary sinus. Normal p osterior nasopharynx. 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 Dental artifact degrades some images. LEFT parotid gl and has been resected. LEFT submandibular gland appears resected. Normal posterior nasopharynx and pa rapharyngeal fat. No definite evidence of recurrent or progressive disease in the LEFT neck. Moderate spondylitic changes cervical spine. Disc space narrowing worse at C5-6. IMPRESSION: Some images degraded by dental artifact. 1. Progressed nodules in the lung apices with new cavitary nodule in the LEFT upper lobe measuring 1 2 mm. Metastatic disease not excluded. Recommend further evaluation with chest CT. 2. Partially visualized RIGHT pleural effusion with adjacent partially obscured nodule measuring 7 m m. 3. Interval postoperative changes LEFT neck dissection with resection of the LEFT parotid and subman dibular glands. No evidence of recurrent or progressive disease in the neck. 4. Polyploid mucosal thickening LEFT maxillary sinus. 5. No visualized cervical lymphadenopathy.
== END 2023-05-01 09:53 | disposition home or self-care (01) ==
PROVIDERS: PCP Family Medicine; Visit Provider Specialist
DX: C44.329 Squamous cell carcinoma of skin of other parts of face (principal); R91.8 Other nonspecific abnormal finding of lung field; J90 Pleural effusion, not elsewhere classified; Z90.89 Acquired absence of other organs
CPT/HCPCS: 70491

== ENCOUNTER 2023-05-14 07:19 | Outpatient (CLI) | payer MEDICARE, MEDICAID, SELFPAY ==
--- NOTE | 2023-05-14 07:25 | CT_ITS ---
WS: [id number] CT chest w con* [id number] HISTORY: Possible metastatic lung disease. Abnormalities noted on neck CT of 05/01/2023. TECHNIQUE: Axial imaging performed through the thorax. Coronal and sagittal reformats are submitted. All CT scans at [facility] use at least one of these dose optimization techniques: automated exposure control; mA and/or kV adjustment per patient size (includes targeted exams where dose is mat ched to clinical indication); or iterative reconstruction. CONTRAST: Omnipaque 350; 100 mL IV. DLP: 222.98 mGy.cm COMPARISON: 05/01/2023, CT abdomen 04/02/2023 Lungs and central airway: Numerous bilateral pulmonary nodules are identified. Greater number of nodu les throughout the LEFT lung. The largest nodule is in the anterior LEFT upper lobe abutting the medi astinal fat measuring 1.6 x 1.8 cm. There are several adjacent satellite nodules. Some of the nodules contain mild cavitation. Other nodules are slightly spiculated. The largest nodule in the RIGHT lung measures 1.9 x 1.7 cm and is within the RIGHT middle lobe. Pleura: Small bilateral pleural effusions, RIGHT greater than LEFT. There is a pleural nodule surroun ded by fluid at the RIGHT lung base measuring 3.4 x 2.4 cm. At the additional pleural-based nodules a re also suspected at the RIGHT lung base. There is an additional nodule seen best on image 43 of seri es 4 in the RIGHT pleural space. There is also mild thickening of the LEFT pleura but no nodule in th e LEFT pleural space. Heart and pericardium: Moderate cardiomegaly. Small circumferential pericardial effusion. No pleural nodules. Mediastinum and adriana: Small mediastinal and hilar lymph nodes. The largest lymph node 0.9 cm at the L EFT hilum. Vessels: Moderate atherosclerosis aorta. Pulmonary artery size is normal. Chest wall and lower neck: No soft tissue masses. Upper abdomen: Intrathoracic stomach there does not appear to be an obstruction although there is an air-fluid level within the stomach. This has been previously described on the prior CT of the abdomen . No adrenal mass. Visualized liver is negative. Prior cholecystectomy. Osseous structures: No destructive process. IMPRESSION: 1. Numerous bilateral pulmonary nodules. The largest nodule LEFT upper lobe measures 1.6 x 1.8 cm. La rgest nodule on the RIGHT in the RIGHT middle lobe measures 1.9 x 1.7 cm. Some of these nodules are s piculated and with cavitation. Highly suspicious for metastatic disease. 2. Small bilateral pleural effusions, RIGHT greater than LEFT. Pleural-based masses are identified wi thin the effusion at the RIGHT lung base. 3. Small but increasing pericardial effusion. 4. No definite mediastinal or hilar adenopathy. There are several lymph nodes which are less than a c entimeter. 5. 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 6. Prior cholecystectomy.
[2023-05-14] MEDS: iohexol 350 mg/mL 500 mL Btl (per mL) IV (07:49)
== END 2023-05-14 07:20 | disposition home or self-care (01) ==
LOC: RAD 07:20
PROVIDERS: PCP Family Medicine; Visit Provider Specialist
DX: R91.8 Other nonspecific abnormal finding of lung field (principal); J90 Pleural effusion, not elsewhere classified; I31.39 Other pericardial effusion (noninflammatory); Z90.49 Acquired absence of other specified parts of digestive tract
CPT/HCPCS: 71260; Q9967

== ENCOUNTER → 2023-05-18 09:15 | Outpatient (BNVA) | payer MEDICARE, MEDICAID, SELFPAY | PROVIDERS: PCP Family Medicine; Visit Provider Nurse Practitioner Family | DX: I10 Essential (primary) hypertension (principal) | CPT/HCPCS: 99213 ==